=== PATIENT | male | born 1950 | race Caucasian/White ===

== ENCOUNTER 2018-03-14 10:08 | Observation (INO) ==
--- NOTE | 2018-03-14 10:13 | Emergency Department Note ---
Disposition Clinical Impression: ACS (acute coronary syndrome) Chest pain Qualifiers: Chest pain type: unspecified Qualified Code(s): R07.9 - Chest pain, unspecified Disposition: Admitted As Inpatient Condition: Fair Referrals: Pricila Funk CNP [Primary Care Provider] - Forms: ED Satisfaction Letter Time of Disposition: 11:12 Chest Pain HPI - General Chief Complaint: ED Chest Pain Stated Complaint: Chest Pain Time Seen by Provider: 03/14/18 10:11 Source: patient Mode of arrival: ambulatory Limitations: no limitations Vital Signs Reviewed: Yes Nursing Notes Reviewed: Yes - History of Present Illness HPI Narrative: 67-year-old male with a history of hypertension, CAD status post 5 stents in 2010 presents for evaluation of chest pain. Patient states symptom onset was around 2:00 this morning. Patient states that he awoke to a chest pressure in the anterior part of his chest that resolved after approximately 15 minutes. Denies any radiation symptoms. Describes as a tightness. Patient denied any pruritic component. No fevers or cough. Patient states that he got up and walked around. Patient noted this morning while in [employer] that he became very diaphoretic. No nausea or vomiting. No chest pain but does state that he has an uneasy feeling in his chest. Denies any other symptoms. Reports taking Plavix as well as aspirin. - Related Data Home Medications Medication Instructions Recorded Confirmed Aspirin [Adult Aspirin] 81 mg PO DAILY 03/14/18 03/14/18 Clopidogrel [Plavix] 75 mg PO DAILY 03/14/18 03/14/18 Folic Acid 1 mg PO DAILY 03/14/18 03/14/18 GlipiZIDE [Glipizide Xl] 5 mg PO DAILY 03/14/18 03/14/18 Lisinopril [Zestril] 10 mg PO BID 03/14/18 03/14/18 Meclizine HCl [Verticalm] 25 mg PO DAILY PRN 03/14/18 03/14/18 Metformin HCl 1,000 mg PO BID 03/14/18 03/14/18 Methotrexate [Otrexup] 10 mg PO QWEEK 03/14/18 03/14/18 Metoprolol Succinate [Toprol Xl] 50 mg PO DAILY 03/14/18 03/14/18 Omeprazole [PriLOSEC] 20 mg PO DAILY 03/14/18 03/14/18 Simvastatin [Zocor] 40 mg PO HS 03/14/18 03/14/18 Allergies Allergy/AdvReac Type Severity Reaction Status Date / Time metronidazole [From Flagyl] Allergy Nausea Verified 03/14/18 10:11 midazolam [From Versed] Allergy Anxiety Verified 03/14/18 10:11 All systems ED: reviewed and negative except as stated. Constitutional: Denies: fever Cardiovascular: Reports: chest pain Respiratory: Denies: cough, dyspnea Gastrointestinal: Denies: abdominal pain, nausea, vomiting Chest Pain PMH - Past Medical History Medical history: Reports: coronary artery disease, diabetes, hypertension, myocardial infarction Surgical history: Reports: angioplasty/stent, cholecystectomy Psychiatric history: Reports: no psych history - Social History Smoking Status: Current every day smoker Alcohol use: Reports: none Drug use: Reports: none Physical Exam - General Limitations: no limitations General appearance: alert, in no apparent distress - Head Head exam: atraumatic, normocephalic, normal inspection - Eye Eye exam: Present: normal appearance, PERRL, EOMI - ENT ENT exam: normal exam, mucous membranes moist - Neck Neck exam: Present: normal inspection, trachea midline - Chest Chest inspection: Present: normal inspection, symmetric chest wall rise - Respiratory Respiratory exam: Present: normal lung sounds bilaterally. Absent: respiratory distress - Cardiovascular Cardiovascular exam: Present: regular rate, normal rhythm. Absent: systolic murmur - Abdominal Exam Abdominal exam: Present: soft, Non-Tender - Extremities Exam Extremities exam: Present: normal inspection. Absent: pedal edema - Expanded Lower Extremity Exam Neurovascular/Tendon exam: Present: normal capillary refill - Back Exam Back exam: Present: normal inspection - Neurological Exam Neurological exam: Present: alert, oriented X3 - Skin Skin exam: Present: warm, dry, intact, normal color Course Course Narrative: Patient seen and examined. Patient presents with complaint of chest pain. Patient will get basic cardiopulmonary screening evaluation. Denies chest pain currently. Disposition likely admission. - Reevaluation(s) Reevaluation #1: Patient's resting comfortably. No chest pain. Time: 11:10 Reevaluation #2: Patient's resting comfortably. No acute distress. Updated on plan of care. Time: 11:17 Vital Signs Temperature 97.7 F 03/14/18 10:11 Pulse Rate 84 03/14/18 10:11 Respiratory Rate 20 03/14/18 10:11 Blood Pressure 174/92 03/14/18 10:11 O2 Sat by Pulse Oximetry 98 03/14/18 10:11 Temperature 97.7 F 03/14/18 10:18 Pulse Rate 79 03/14/18 11:12 Respiratory Rate 18 03/14/18 11:12 Blood Pressure 165/89 03/14/18 11:12 O2 Sat by Pulse Oximetry 99 03/14/18 11:12 Oxygen Delivery Oxygen Delivery Room Air Chest Pain - MDM Narrative Medical decision making narrative: Patient presents for concerns of chest pain. Patient's chest pain is most consistent with ACS. Patient's been chest pain-free during the ED. Patient does have a history of ACS with stents. Patient does have an elevated heart score and would benefit from further evaluation in the hospital. Patient was given aspirin. Patient's troponin is negative however with the patient symptom onset earlier today would likely need serial evaluations. Patient's pain is less consistent with a pulmonary embolism or aortic dissection. - Medical Records Medical records reviewed: Yes I reviewed the patient's medical records. 2017 Pharmacologic stress ECG is non diagnostic for ischemia due to baseline non-specific ST and T changes. Gated EF > 70%. Small sized, mild to moderate intensity, fixed basal to mid inferolateral defect. Perfusion is slightly worse on rest imaging and wall motion is normal. These findings are most suggestive of artifact. Perfusion imaging was negative for ischemia or infarct. - Lab Data Lab results reviewed: Yes I reviewed the patient's lab results. Result diagrams: 03/14/18 10:19 03/14/18 10:19 Lab Results 03/14/18 03/14/18 03/14/18 Range/Units 10:19 10:19 10:19 WBC 10.1 (4.3-11.1) K/mcL RBC 4.51 (4.19-5.50) M/mcL Hgb 14.3 (12.9-16.9) g/dL Hct 42.9 (37.5-50.1) % MCV 95.1 (83.0-100.0) fL MCH 31.7 (28.0-33.3) pg MCHC 33.3 (31.6-35.5) g/dL RDW 13.7 (11.5-14.5) % Plt Count 246 (140-400) K/mcL MPV 10.1 (9.4-12.4) fL Immature Gran % 0.3 (0-4) % Seg Neutrophils % 70.8 % Lymphocytes % 20.8 % Monocytes % 7.6 % Eosinophils % 0.3 % Basophils % 0.2 % Neutrophils # 7.1 (1.6-8.9) K/mcL Lymphocytes # 2.1 (0.6-4.6) K/mcL Monocytes # 0.8 (0.0-1.3) K/mcL Eosinophils # 0.0 (0.0-0.6) K/mcL Basophils # 0.0 (0.0-0.2) K/mcL Sodium 138 (136-145) mEq/L Potassium 3.8 (3.5-5.1) mEq/L Chloride 101 (98-107) mEq/L Carbon Dioxide 27 (23-29) mEq/L BUN 12 (8-23) mg/dL Creatinine 0.93 (0.70-1.30) mg/dL Est GFR ( Amer) > 60 (> 60) Est GFR (Non-Af Amer) > 60 (> 60) BUN/Creatinine Ratio 13 (6-26) Glucose 298 H (70-105) mg/dL Calculated Osmolality 297 (280-300) Calcium 9.3 (8.6-10.3) mg/dL Troponin I < 0.03 (< 0.04) ng/mL B-Natriuretic Peptide 12 (Less than 100) pg/mL - Radiology Data Radiology results reviewed: Yes I reviewed the patient's radiology results. Chest X-Ray 03/14/18 10:17 IMPRESSION: 1. No active cardiopulmonary disease. 2. 6 mm rounded opacity in the right upper lung zone for which nonemergent noncontrast CT of the chest is recommended. D/ / Myles Campos / Myles Campos Interpreting Provider: Myles Campos - EKG Data EKG attestation: Yes I reviewed and interpreted this EKG. EKG shows normal: sinus rhythm Rate: normal Rhythm: NSR [place]/QRS: left axis deviation Q waves: v1, v2, v3 When compared to previous EKG there are: no significant changes Interpretation: no acute changes, unchanged when compared to prior tracing (date ), nonspecific ST-T wave changes Heart Score - Score History: Moderately Suspicious EKG: Normal Age: Greater than 65 Risk Factors: Equal/Greater than 3 risk factor or history of atherosclerotic disease Troponin: Less than normal limit HEART Score Total: 5 S.B.A.R. - S.Miriam.Basilio Situation: Demographics Background: Presenting Complaint Assessment: Vital Signs, Course and respsone to treatment, Patient/Family Expectation Recommendation: Barrier(s) to disposition, Recommendation based on pending studies, treatments, or consults S.B.A.Sven Report Given to: Dr. Colten Jeffers Repor Time: 11:36
[2018-03-14] MEDS ORDERED: Nitroglycerin 0.4 MG TAB.SUBL SL ONE (10:26)
[2018-03-14] MEDS ORDERED: Aspirin 81 MG TAB.CHEW PO ONE (10:26)
--- NOTE | 2018-03-14 10:37 | Emergency Department Note ---
Disposition Clinical Impression: ACS (acute coronary syndrome) Disposition: Still a Patient Forms: ED Satisfaction Letter General Adult HPI - General Chief complaint: ED Chest Pain Stated complaint: Chest Pain Time Seen by Provider: 03/14/18 10:11 Source: patient Mode of arrival: ambulatory Limitations: no limitations - History of Present Illness Pain Scale: 1 - Related Data Previous Rx's Medication Instructions Recorded Ciprofloxacin [Cipro] 500 mg PO BID #10 tablet 03/18/15 metroNIDAZOLE [Flagyl] 500 mg PO TID #30 tablet 03/18/15 Allergies Allergy/AdvReac Type Severity Reaction Status Date / Time metronidazole [From Flagyl] Allergy Nausea Verified 03/14/18 10:11 midazolam [From Versed] Allergy Anxiety Verified 03/14/18 10:11 Constitutional: Denies: fever Cardiovascular: Reports: chest pain Respiratory: Denies: cough, dyspnea Gastrointestinal: Denies: abdominal pain, nausea, vomiting Past Medical History - Past Medical History Medical history: Reports: coronary artery disease, diabetes, hypertension, myocardial infarction Surgical history: Reports: angioplasty/stent, cholecystectomy Psychiatric history: Reports: no psych history - Social History Smoking Status: Current every day smoker Smokeless Tobacco Status: No Alcohol use: Reports: none Drug use: Reports: none Physical Exam - General Limitations: no limitations General appearance: alert, in no apparent distress Course - Reevaluation(s) Reevaluation #1: Attestation note I examined this patient and my medical decision-making was reviewed with the Resident Physician/[employer] RECONDITIONER/PA. 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 Patient became pain-free without nitroglycerin here ED EKG shows signs of old infarct but no acute ischemic changes. Patient's heart score is greater than 4 with admission anticipated patient and family member so informed. Patient getting aspirin screening labs chest x-ray. Disposition pending. Time: 10:35 Vital Signs Temperature 97.7 F 03/14/18 10:11 Pulse Rate 84 03/14/18 10:11 Respiratory Rate 20 03/14/18 10:11 Blood Pressure 174/92 03/14/18 10:11 O2 Sat by Pulse Oximetry 98 03/14/18 10:11 Temperature 97.7 F 03/14/18 10:18 Pulse Rate 84 03/14/18 10:18 Respiratory Rate 20 03/14/18 10:18 Blood Pressure 174/92 03/14/18 10:18 O2 Sat by Pulse Oximetry 98 03/14/18 10:18 Oxygen Delivery Oxygen Delivery Room Air
[2018-03-14 10:44] LABS: Basophils % 0.2 %; Eosinophils % 0.3 %; Hematocrit 42.9 % (37.5-50.1); Hemoglobin 14.3 g/dL (12.9-16.9); Immature Granulocytes % 0.3 % (0-4); Lymphocytes # 2.1 K/mcL (0.6-4.6); Lymphocytes % 20.8 %; Mean Corpuscular HGB Conc 33.3 g/dL (31.6-35.5); Mean Corpuscular Hemoglobin 31.7 pg (28.0-33.3); Mean Corpuscular Volume 95.1 fL (83.0-100.0); Mean Platelet Volume 10.1 fL (9.4-12.4); Monocytes # 0.8 K/mcL (0.0-1.3); Monocytes % 7.6 %; Neutrophils # 7.1 K/mcL (1.6-8.9); Platelet Count 246 K/mcL (140-400); Red Blood Count 4.51 M/mcL (4.19-5.50); Red Cell Distribution Width 13.7 % (11.5-14.5); Segmented Neutrophils % 70.8 %
[2018-03-14 10:55] LABS: BUN/Creatinine Ratio 13 (6-26); Blood Urea Nitrogen 12 mg/dL (8-23); Calcium 9.3 mg/dL (8.6-10.3); Carbon Dioxide 27 mEq/L (23-29); Chloride 101 mEq/L (98-107); Glucose 298 mg/dL (70-105); Osmolality,Calculated 297 (280-300); Potassium 3.8 mEq/L (3.5-5.1); Sodium 138 mEq/L (136-145); eGFR For Non-African Americans > 60 (> 60)
[2018-03-14 10:56] LABS: Troponin I < 0.03 ng/mL (< 0.04)
[2018-03-14] MEDS ORDERED: Ondansetron 4 MG/2 ML VIAL IVP PRN (13:03)
[2018-03-14] MEDS ORDERED: Naloxone 0.4 MG/ML INJ IVP PRN (13:06)
[2018-03-14] MEDS: Folic Acid 1 MG TABLET PO SCH (14:05)
[2018-03-14] MEDS: Metoprolol XL (24 HR) Succ 50 MG TAB.ER.24H PO SCH (14:05)
[2018-03-14] MEDS ORDERED: *HR* Dextrose 50 % in Water (Syg) 50 ML SYRINGE IVP PRN (17:14)
[2018-03-14] MEDS ORDERED: D5% in Water 1,000 ML IVC PRN (17:14)
[2018-03-14] MEDS ORDERED: Dextrose Gel 15 GM/37.5 ML TUBE PO PRN ×2 (17:14)
[2018-03-14] MEDS: Insulin LISPRO 300 UNITS/3 ML VIAL SQ SCH (17:37)
--- NOTE | 2018-03-14 18:49 | Internal Med History&Physical ---
Date of Encounter: 03/14/18 Time of Encounter: 14:45 Internal Medicine - H&P: HPI Chief complaint: chest pain Admitted From: Emergency Dept Plans for Post Hospital Care: Home History of present illness: Mr. Jordan is a 67 year old male with hx of CAD presented to ED with chest pain. He was subsequently admitted. He awoke at 2AM with chest pressure which resolved in 15 min. He went to [employer] and became diaphoretic with chest heaviness and was brought to ED. At this time he asymptomatic and everything resolved on its own. He has not been sick. No fever or chills. No cough or dyspnea. No other associated symptoms. Last stress in 2017 and negative. ? when last cath. Currently he is comfortable and pain free. Past Med Surg Social Fam HX - Past Medical History Medical history: coronary artery disease, diabetes, hypertension, myocardial infarction, RA Additional medical history: SBO Psychiatric history: no psych history - Past Surgical History Surgical History: angioplasty/stent, cholecystectomy Additional surgical history: Stents x 5 - Social History Smoking Status: Never smoker Smokeless Tobacco Status: No Alcohol use: none Drug use: none - Family History Father Living Status: Hx Family Cardiac Disorders: Yes Hx Family Respiratory Disorders: Yes (COPD) Hx Family GI Disorders: Yes (Colitis) Brother Living Status: Still Living Hx Family Cardiac Disorders: Yes (AR) Hx Family Musculoskeletal Disorders: Yes Internal Medicine - H&P: Meds Aspirin [Adult Aspirin] 81 mg PO DAILY 03/14/18 [History] Clopidogrel [Plavix] 75 mg PO DAILY 03/14/18 [History] Folic Acid 1 mg PO DAILY 03/14/18 [History] GlipiZIDE [Glipizide Xl] 5 mg PO DAILY 03/14/18 [History] Lisinopril [Zestril] 10 mg PO BID 03/14/18 [History] Meclizine HCl [Verticalm] 25 mg PO DAILY PRN 03/14/18 [History] Metformin HCl 1,000 mg PO BID 03/14/18 [History] Methotrexate [Otrexup] 10 mg PO QWEEK 03/14/18 [History] Metoprolol Succinate [Toprol Xl] 50 mg PO DAILY 03/14/18 [History] Omeprazole [PriLOSEC] 20 mg PO DAILY 03/14/18 [History] Simvastatin [Zocor] 40 mg PO HS 03/14/18 [History] 3 Allergy/AdvReac Type Severity Reaction Status Date / Time metronidazole [From Flagyl] Allergy Nausea Verified 03/14/18 10:11 midazolam [From Versed] Allergy Anxiety Verified 03/14/18 10:11 All Systems PM: A 10-system review of systems was performed and is negative for pertinent findings except as documented above in the HPI. - Constitutional Constitutional: excessive sweating - EENT Eyes: no dry eye, no loss of vision Ears: no decreased hearing Nose, mouth and throat: no dry mouth, no sinus pain - Cardiovascular Cardiovascular ROS IM: chest pain, diaphoresis, no dyspnea, no dyspnea on exertion, no irregular heart rhythm, no lightheadedness - Respiratory Respiratory: no dyspnea, no wheezing, no chest congestion - Gastrointestinal Gastrointestinal: no abdominal pain, no melena, no vomiting - Genitourinary Genitourinary ROS male: no dysuria, no urinary frequency, no urinary urgency - Musculoskeletal Musculoskeletal ROS IM: arthralgias - Integumentary Integumentary IM: no erythema, no rash - Neurological Neurological ROS: no abnormal gait, no confusion, no numbness - Endocrine Endocrine IM: no cold intolerance, no flushing - Hematologic/Lymphatic Hematologic/Lymphatic: no easy bleeding - Allergic/Immunologic Allergic/Immunologic: no itchy eyes, no wheezing - Constitutional Vitals: Temp Pulse Resp BP Pulse Ox 97.4 F L 66 16 149/64 98 03/14/18 16:19 03/14/18 16:19 03/14/18 16:19 03/14/18 16:19 03/14/18 16:19 General appearance: Present: A&O X 3, pleasant, answers questions appropriately - Head Head exam: Present: atraumatic, normocephalic - Eye Eye exam: Present: EOMI, conjuntiva pink - ENT ENT exam: Present: mucous membranes moist - Respiratory Respiratory exam: Present: CTAB. Absent: rales, rhonchi, wheezes - Cardiovascular Cardiovascular exam: Present: RRR. Absent: systolic murmur, tachycardia - GI/Abdominal GI/Abdominal exam: Present: normal bowel sounds, soft. Absent: mass, tenderness - Extremities Exam Extremities exam: Present: warm. Absent: pedal edema, tenderness - Neurological Exam Neurological exam: Present: alert, oriented X3, no focal deficits - Skin Skin exam: Present: dry, warm Internal Med - H&P Results - Labs CBC & Chem 7: 03/14/18 10:19 03/14/18 10:19 Labs: Cardiac Enzymes 03/14/18 Range/Units 13:38 Troponin I < 0.03 (< 0.04) ng/mL - Assessment and plan (1) Chest pain Current Visit: Yes Status: Suspected Assessment and plan: Pt with 2 episodes of chest discomfort (one with diaphoresis) which spontaneously resolved. Hx of [address] in observation. Continue meds. Serial troponins. Cardiology eval: stress versus LHC. NPO at midnight. Qualifiers: Chest pain type: chest pain due to myocardial ischemia Ischemic chest pain type: unstable angina pectoris Qualified Code(s): I20.0 - Unstable angina (2) Diabetes Current Visit: Yes Status: Chronic Assessment and plan: Accuchecks and sliding scale ordered. 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 Continue home meds. Qualifiers: Hypertension type: essential hypertension Qualified Code(s): I10 - Essential (primary) hypertension (4) CAD (coronary artery disease) Current Visit: Yes Status: Chronic Assessment and plan: See above. Qualifiers: Coronary Disease-Associated Artery/Lesion type: [place] artery [place] vs. transplanted heart: [place] heart Associated angina: with unstable angina Qualified Code(s): I25.110 - Atherosclerotic heart disease of [place] coronary artery with unstable angina pectoris - Time Spent With Patient Total time spent is greater than 50% in coordination of care (as documented) at patient's floor/unit and/or counseling patient:
[2018-03-14] MEDS ORDERED: Insulin LISPRO 300 UNITS/3 ML VIAL SQ SCH (21:00)
[2018-03-15 01:27] LABS: Basophils % 0.4 %; Eosinophils # 0.1 K/mcL (0.0-0.6); Eosinophils % 0.9 %; Hematocrit 37.6 % (37.5-50.1); Immature Granulocytes % 0.1 % (0-4); Lymphocytes # 1.7 K/mcL (0.6-4.6); Lymphocytes % 24.4 %; Mean Corpuscular HGB Conc 33.5 g/dL (31.6-35.5); Mean Corpuscular Hemoglobin 31.2 pg (28.0-33.3); Mean Corpuscular Volume 93.1 fL (83.0-100.0); Monocytes # 0.7 K/mcL (0.0-1.3); Monocytes % 10.1 %; Neutrophils # 4.5 K/mcL (1.6-8.9); Platelet Count 209 K/mcL (140-400); Red Blood Count 4.04 M/mcL (4.19-5.50); Red Cell Distribution Width 13.7 % (11.5-14.5); Segmented Neutrophils % 64.1 %
[2018-03-15 01:28] LABS: Hemoglobin 12.6 g/dL (12.9-16.9)
[2018-03-15 01:34] LABS: INR 1.1
[2018-03-15 01:48] LABS: Alanine Aminotransferase 29 Units/L (7-52); Alkaline Phosphatase 49 Units/L (34-104); Aspartate Amino Transferase 20 Units/L (13-39); BUN/Creatinine Ratio 15 (6-26); Bilirubin,Total 0.7 mg/dL (0.3-1.0); Blood Urea Nitrogen 14 mg/dL (8-23); Calcium 9.3 mg/dL (8.6-10.3); Carbon Dioxide 27 mEq/L (23-29); Chloride 107 mEq/L (98-107); Glucose 121 mg/dL (70-105); Magnesium 2.2 mg/dL (1.6-2.6); Osmolality,Calculated 290 (280-300); Potassium 4.2 mEq/L (3.5-5.1); Sodium 139 mEq/L (136-145); eGFR For Non-African Americans > 60 (> 60)
[2018-03-15] MEDS ORDERED: Aspirin 81 MG TAB.CHEW PO SCH (09:00)
--- NOTE | 2018-03-15 09:14 | Cardiology Consult Note ---
<JulioChan S - Last Filed: 03/15/18 10:33> Date of Encounter: 03/15/18 Time of Encounter: 08:40 Assessment and Plan (1) Chest pain Current Visit: Yes Status: Acute Pt presented to the ER due to chest pain that lasted for about 15-20min, started at 2:30am -located in shoulders, (+) palpitations and diaphoresis, pressure like pain -no active chest pain, SOB -troponins <0.03 x 3, BNP 12 -CXR negative for acute cardiopulmonary process -prior NE in 2010 s/p 5 stents, last cath is unknown -the patient states that this chest pain is unlike his previous heart attack -last ECHO was 12/2016: LVEF 55-60%, normal LV chamber, mild LVH, mild LV diastolic dysfxn, normal RV structure/fxn, mild aortic regurg, mild pulmonic regurg -stress test in 2017 negative for ischemia or infarct -EKG in the ER showed LVH, sinus bradycardia with a rate of 60, and old septal NE Plan: -ECHO pending -plan for stress test today -NPO for stress test -check lipid panel -SB score of 2 -continue home meds - aspirin 81mg PO daily, Plavix 75mg PO daily, Zestril 10mg PO daily, Toprol 50mg PO daily, Zocor 40mg PO daily -if stress test is negative pt can follow up with cardiology as an outpatient basis Qualifiers: Chest pain type: chest pain due to myocardial ischemia Ischemic chest pain type: unstable angina pectoris Qualified Code(s): I20.0 - Unstable angina (2) HTN (hypertension) Current Visit: No Status: Chronic BP on admission was 174/92 -this morning is 122/85, pt was hypertensive most of the day yesterday may be 2/ 2 to anxiety -poorly controlled Plan: -continue home meds -Zestril 10mg PO daily, Toprol 50mg PO daily Qualifiers: Hypertension type: essential hypertension Qualified Code(s): I10 - Essential (primary) hypertension (3) CAD (coronary artery disease) Current Visit: No Status: Chronic Pt has a hx of NE in 2010, s/p 5 stents of unknown last [facility] date -pt has multiple CAD risk factors including T2DM and HTN Plan: -check lipid profile -continue home meds aspirin 81mg PO daily, Plavix 75mg PO daily, Zestril 10mg PO daily, Toprol 50mg PO daily, Zocor 40mg PO daily -encourage low fat low cholesterol heart healthy diet Qualifiers: Coronary Disease-Associated Artery/Lesion type: [place] artery [place] vs. transplanted heart: [place] heart Associated angina: with unstable angina Qualified Code(s): I25.110 - Atherosclerotic heart disease of [place] coronary artery with unstable angina pectoris Discussion w patient/family: The assessment and plan as outlined above was discussed with the patient and/or family members who expressed understanding and agreement. All questions were answered. Thank you for involving us in the care of your patient. Please call with any questions. History of Present Illness Consult date: 03/14/18 Requesting physician: Hoang Abel Consult reason: Chest pain Chief complaint: "chest pain" History of present illness: Mr. Jordan is a 67 year old male who presented to the ER yesterday. He states that Thursday morning he was awoken at 2:30am by chest pain that lasted for about 15-20min. He states it was in his shoulders with no radiation and was a pressure like pain. He had associated palpiltations with the chest pain. -the pt has a PMH of T2DM, HTN, and a prior NE in 2010 s/p 5 stents, last cath is unknown -the patient states that this chest pain is unlike his previous heart attack The pt came to the ER after going to [employer] and becoming diaphoretic. He states that he is unable to exert himself as much as he used to and that his "cardio" isn't where it should be. He states that it takes him longer than it used to for him to mow the lawn but states that he has no CP/anginal s/s during exertion , SOB. He denies needing extra pillows to sleep and is able to lie flat. At this time the pt denies active chest pain. He denies SOB, N/V/D, diaphoresis , fevers/chills. He hasn't recently been sick. Troponins (-) x3 CXR - negative for acute cardiopulmonary process Fluids - none Electrolytes - all WNL Nutrition - currently NPO DVT prophylaxis - SQ heparin 5000U GI prophylaxis - not indicated Past Med Surg Social Fam HX - Past Medical History Medical history: coronary artery disease, diabetes, hypertension, myocardial infarction, RA Additional medical history: SBO Psychiatric history: no psych history - Past Surgical History Surgical History: angioplasty/stent, cholecystectomy Additional surgical history: Stents x 5 - Social History Smoking Status: Never smoker Smokeless Tobacco Status: No Alcohol use: none Drug use: none - Family History Father Living Status: Hx Family Cardiac Disorders: Yes Hx Family Respiratory Disorders: Yes (COPD) Hx Family GI Disorders: Yes (Colitis) Brother Living Status: Still Living Hx Family Cardiac Disorders: Yes (NE) Hx Family Musculoskeletal Disorders: Yes Medications and Allergies Aspirin [Adult Aspirin] 81 mg PO DAILY 03/14/18 [History] Clopidogrel [Plavix] 75 mg PO DAILY 03/14/18 [History] Folic Acid 1 mg PO DAILY 03/14/18 [History] GlipiZIDE [Glipizide Xl] 5 mg PO DAILY 03/14/18 [History] Lisinopril [Zestril] 10 mg PO BID 03/14/18 [History] Meclizine HCl [Verticalm] 25 mg PO DAILY PRN 03/14/18 [History] Metformin HCl 1,000 mg PO BID 03/14/18 [History] Methotrexate [Otrexup] 10 mg PO QWEEK 03/14/18 [History] Metoprolol Succinate [Toprol Xl] 50 mg PO DAILY 03/14/18 [History] Omeprazole [PriLOSEC] 20 mg PO DAILY 03/14/18 [History] Simvastatin [Zocor] 40 mg PO HS 03/14/18 [History] Aspirin 81 mg PO DAILY tab.chew 03/15/18 [Rx] 3 Allergy/AdvReac Type Severity Reaction Status Date / Time metronidazole [From Flagyl] Allergy Nausea Verified 03/14/18 10:11 midazolam [From Versed] Allergy Anxiety Verified 03/14/18 10:11 All Systems Review: The remainder of the systems were reviewed and are negative - Constitutional Constitutional: no chills, no fever(s), no stops breathing during sleep - Cardiovascular Cardiovascular: diaphoresis, leg edema, palpitations, no chest pain at rest, no chest pain with exertion, no dyspnea at rest, no dyspnea on exertion, no orthopnea, no paroxysmal nocturnal dyspnea - Gastrointestinal Gastrointestinal: no constipation, no diarrhea, no nausea - Neurological Neurological: no focal weakness, no numbness, no syncope, no tingling Physical Examination Vital Signs, Last 4 Hours Temp Pulse Resp BP Pulse Ox 03/15/18 07:32 97.7 F 64 15 122/85 97 General: Conversant HEENT: Atraumatic, Normocephaly Neck: No JVD Cardiac: Normal S1 and S2, No Murmur, Other (bradycardic) Neuro: Alert and responsive, No focal deficits noted Abdomen: Soft Skin: No rashes noted on visualized skin Musculoskeletal: No Chest Wall Tenderness Extremities: Other (1+ pitting edema) Results 03/15/18 00:57 03/15/18 00:57 Lab Results 03/14/18 03/14/18 03/15/18 13:38 18:53 00:57 WBC Hgb Hct Plt Count INR Sodium Potassium Chloride Carbon Dioxide BUN Creatinine Glucose Calcium Magnesium Total Bilirubin AST ALT Alkaline Phosphatase Troponin I < 0.03 < 0.03 < 0.03 03/15/18 03/15/18 03/15/18 00:57 00:57 00:57 WBC 7.0 Hgb 12.6 L D Hct 37.6 Plt Count 209 INR 1.1 Sodium 139 Potassium 4.2 Chloride 107 Carbon Dioxide 27 BUN 14 Creatinine 0.94 Glucose 121 H Calcium 9.3 Magnesium 2.2 Total Bilirubin 0.7 AST 20 ALT 29 Alkaline Phosphatase 49 Troponin I Consult Discharge Plan - Plan Referrals: Pricila Funk, GEN [Primary Care Provider] - <Emory Goins - Last Filed: 03/15/18 17:06> Date of Encounter: 03/15/18 Time of Encounter: 10:15 - Attending Attestation I examined this patient and my medical decision-making was reviewed with the Resident Physician. I agree with the documented findings, disposition and treatment plan as described except to the extent set forth below. CC: chest pain HPI: pt complains of sudden onset chest pain, awoken from sleep at 02:30, between his shoulder blades, pressure sensation, 8/10 at most severe, associated with heart racing but not skipping. Chest pain did not radiate, not associated with nausea, diaphoresis or shortness of breath. Pain lasted approximately forty five minutes, resolved spontaneously. He had second event, reports became very diaphoretic while at rest at [employer], became anxious, came to ER. Symptoms had resolved on presentation to ER, did not reoccur. He notes decreased exercise tolerance over last several months, no specific change, but notes he cannot mow or walk as fast as he was able too four months ago. He is not otherwise symptomatic, just takes longer to do physical exertion, is more tired afterward, ROS: reviewed PMH: reviewed PE: pt seen and examined, agree with findings as documented IMP/Plan: 1, Atypical chest pain, has ruled out for acute myocardial necrosis, however with hx, risk factors, will proceed with provocative stress imaging, further recs pending results of stress results. 2. CAD: severe single vessel CAD, post PCI with RAEANN unknown vessel, old records requested. 3. Hyptension: not well controlled at present, however suspect has significant anxiety component, will continue to monitor Assessment and Plan Discussion w patient/family: The assessment and plan as outlined above was discussed with the patient and/or family members who expressed understanding and agreement. All questions were answered. Thank you for involving us in the care of your patient. Please call with any questions. History of Present Illness History of present illness: Mr. Jordan is a 67 year old male All Systems Review: The remainder of the systems were reviewed and are negative Physical Examination Vital Signs, Last 4 Hours Temp Pulse Resp BP Pulse Ox 03/15/18 15:21 97.8 F 62 16 131/85 98 Results 03/15/18 00:57 03/15/18 00:57 Lab Results 03/14/18 03/15/18 03/15/18 18:53 00:57 00:57 WBC 7.0 Hgb 12.6 L D Hct 37.6 Plt Count 209 INR Sodium Potassium Chloride Carbon Dioxide BUN Creatinine Glucose Calcium Magnesium Total Bilirubin AST ALT Alkaline Phosphatase Troponin I < 0.03 < 0.03 03/15/18 03/15/18 00:57 00:57 WBC Hgb Hct Plt Count INR 1.1 Sodium 139 Potassium 4.2 Chloride 107 Carbon Dioxide 27 BUN 14 Creatinine 0.94 Glucose 121 H Calcium 9.3 Magnesium 2.2 Total Bilirubin 0.7 AST 20 ALT 29 Alkaline Phosphatase 49 Troponin I
[2018-03-15] MEDS ORDERED: D5% in 0.45% NACL 1,000 ML IVC SCH (09:30)
[2018-03-15 09:53] LABS: Estimated Average Glucose 154 mg/dl
[2018-03-15] MEDS: Metoprolol XL (24 HR) Succ 50 MG TAB.ER.24H PO SCH (10:11)
[2018-03-15] MEDS: Insulin LISPRO 300 UNITS/3 ML VIAL SQ SCH ×2 (10:11→12:37)
[2018-03-15] MEDS: Folic Acid 1 MG TABLET PO SCH (10:11)
[2018-03-15 10:25] LABS: Chol/HDL Ratio 4.3 (0-4.9)
[2018-03-15] MEDS ORDERED: Regadenoson 0.4 MG/5 ML SYRINGE IVP ONE (11:14)
--- NOTE | 2018-03-15 14:04 | Internal Med Progress Note ---
<Althea Hwang P - Last Filed: 03/15/18 14:50> Hospitalist Progress Note - Encounter Date of Encounter: 03/15/18 Time of Encounter: 11:00 - Subjective Interval History: Today is day 4th of admission.He is 67 year old male who presented to the ER for sharp severe central chest pain that lasted for about 15-20 min. He states it was in his central chest with no radiation and was a pressure like pain. He had associated palpitations and mild diaphoresis with the chest pain. He is known case of PMH of T2DM, HTN, and a prior VT in 2010 s/p 5 stents, last cardiac stress test was 2016 it was normal.At this time the pt denies active chest pain. He denies SOB, N/V/D, diaphoresis, fevers/chills, epigastric pain. His recent troponin is 0.03 . Vitals stable; 122/85, 7.7, pulse 64/ minutes. Cardiac stress testing done today :patient had no chest pain during test , normal hemodynamic response to pharmacological test , EF >70%, ECG : normal sinus rhythm with nonspecific ST changes. - Exam Vitals: Temp Pulse Resp BP Pulse Ox 97.7 F 64 15 122/85 97 03/15/18 07:32 03/15/18 07:32 03/15/18 07:32 03/15/18 07:32 03/15/18 10:00 Exam: Constitutional/ General normal weight, not in distress , oriented to time , place and person EENT Nose, mouth and throat: no dry mouth, no tonsilar enlargement, no exudates Cardiovascular Normal rate and rhythm, S1S2 no murmur, no rub , JVD, - Respiratory Respiratory: Normal chest expansion, normal air entry , no rales and crepitation. - Gastrointestinal Gastrointestinal: soft warm , no distension, no organomegaly, BS+ - Integumentary/ extremities no pedal edema, no calf swelling - Assessment and Plan (1) Chest pain Current Visit: Yes Status: Acute Assessment and Plan: Pt with 2 episodes of chest discomfort (one with diaphoresis) which spontaneously resolved. Hx of 5 stents. Latest Troponin 0.03 Cardiac stress test:Cardiac stress testing done today :patient had no chest pain during test , normal hemodynamic response to pharmacological test , EF >70% , ECG : normal sinus rhythm with nonspecific ST change He is on Aspirin and clopidogrel The pain is 0-1/10 now. (2) Diabetes Current Visit: Yes Status: Chronic Assessment and Plan: Accuchecks and sliding scale ordered. His latest blood sugar is 121 (3) HTN (hypertension) Current Visit: No Status: Chronic Assessment and Plan: He is on Lisinopril 10 mg OD His blood pressure is under control : 122/85 today (4) CAD (coronary artery disease) Current Visit: No Status: Chronic - Time Spent with Patient Total time spent is greater than 50% in coordination of care (as documented) at patient's floor/unit and/or counseling patient: Internal Medicine: Result - Labs CBC & Chem 7: 03/15/18 00:57 03/15/18 00:57 Labs: Short CBC 03/15/18 Range/Units 00:57 WBC 7.0 (4.3-11.1) K/mcL Hgb 12.6 L D (12.9-16.9) g/dL Hct 37.6 (37.5-50.1) % Plt Count 209 (140-400) K/mcL Neutrophils # 4.5 (1.6-8.9) K/mcL BMP 03/15/18 00:57 Sodium 139 Potassium 4.2 Chloride 107 Carbon Dioxide 27 BUN 14 Creatinine 0.94 Glucose 121 H Calcium 9.3 Cardiac Enzymes 03/14/18 03/14/18 03/15/18 Range/Units 13:38 18:53 00:57 Troponin I < 0.03 < 0.03 < 0.03 (< 0.04) ng/mL Liver Function 03/15/18 Range/Units 00:57 Total Bilirubin 0.7 (0.3-1.0) mg/dL AST 20 (13-39) Units/L ALT 29 (7-52) Units/L Alkaline Phosphatase 49 (34-104) Units/L Albumin 4.0 (3.5-5.7) g/dL - ABG Interpretation ABG results: PT/INR, D-dimer PT 12.0 Seconds (9.4-12.1) 03/15/18 00:57 Consult Discharge Plan - Plan Referrals: Pricila Funk, MAKEUP ARTISTRY INSTRUCTOR [Primary Care Provider] - <Hoang Abel - Last Filed: 03/15/18 17:51> Hospitalist Progress Note - Encounter Date of Encounter: 03/15/18 - Exam Vitals: Temp Pulse Resp BP Pulse Ox 97.8 F 62 16 131/85 98 03/15/18 15:21 03/15/18 15:21 03/15/18 15:21 03/15/18 15:21 03/15/18 15:21 - Assessment and Plan (1) Chest pain Current Visit: Yes Status: Resolved (2) Diabetes Current Visit: Yes Status: Chronic (3) HTN (hypertension) Current Visit: No Status: Chronic (4) CAD (coronary artery disease) Current Visit: No Status: Chronic - Time Spent with Patient Total time spent is greater than 50% in coordination of care (as documented) at patient's floor/unit and/or counseling patient: Internal Medicine: Result - Labs CBC & Chem 7: 03/15/18 00:57 03/15/18 00:57 Labs: Short CBC 03/15/18 Range/Units 00:57 WBC 7.0 (4.3-11.1) K/mcL Hgb 12.6 L D (12.9-16.9) g/dL Hct 37.6 (37.5-50.1) % Plt Count 209 (140-400) K/mcL Neutrophils # 4.5 (1.6-8.9) K/mcL BMP 03/15/18 00:57 Sodium 139 Potassium 4.2 Chloride 107 Carbon Dioxide 27 BUN 14 Creatinine 0.94 Glucose 121 H Calcium 9.3 Cardiac Enzymes 03/14/18 03/15/18 Range/Units 18:53 00:57 Troponin I < 0.03 < 0.03 (< 0.04) ng/mL Liver Function 03/15/18 Range/Units 00:57 Total Bilirubin 0.7 (0.3-1.0) mg/dL AST 20 (13-39) Units/L ALT 29 (7-52) Units/L Alkaline Phosphatase 49 (34-104) Units/L Albumin 4.0 (3.5-5.7) g/dL - ABG Interpretation ABG results: PT/INR, D-dimer PT 12.0 Seconds (9.4-12.1) 03/15/18 00:57 - Impressions Impressions Echocardiogram 03/15/18 08:25 Impressions: LVEF 60%. Mild left ventricular diastolic dysfunction. Normal right ventricular structure and function. Mild-moderate aortic regurgitation. Mild pulmonic regurgitation. No pulmonary hypertension. Left Ventricular Wall Motion: Rest Echo Findings All wall segments showed normal motion. Findings: Study Quality * Technically adequate exam. ECG Findings * Normal sinus rhythm. Left Ventricle * LVEF 60%. * Mild left ventricular diastolic dysfunction. * Normal LV chamber size and wall thickness. Right Ventricle * Normal right ventricular structure and function. Left Atrium * Normal left atrial size. Right Atrium * Normal right atrial size. Aortic Valve * Trileaflet aortic valve. * No aortic stenosis. * Mild-moderate aortic regurgitation. Mitral Valve * No mitral regurgitation. * Normal mitral valve structure. * No mitral stenosis. Tricuspid Valve * Tricuspid valve not well visualized. * Trace tricuspid regurgitation. Pulmonic Valve * Pulmonic valve is not well visualized. * No pulmonic stenosis. * Mild pulmonic regurgitation. Pulmonary Artery * Pulmonary artery not well visualized. Aorta * Normally sized aortic root. * Proximal ascending thoracic aorta not well visualized. Pericardium * There is no pericardial effusion present. Interatrial Septum * No evidence of PFO by color Doppler. IVC * The IVC is not well evaluated. - Attending Attestation Please see discharge summary of this date. <Althea Hwang P - Last Filed: 03/15/18 14:50> (1) Chest pain Qualifiers: Chest pain type: chest pain due to myocardial ischemia Ischemic chest pain type: unstable angina pectoris Qualified Code(s): I20.0 - Unstable angina (2) Diabetes Qualifiers: Diabetes mellitus type: type 2 Diabetes mellitus long-term insulin use: without long-term use Diabetes mellitus complication status: without complication Qualified Code(s): E11.9 - Type 2 diabetes mellitus without complications (3) HTN (hypertension) Qualifiers: Hypertension type: essential hypertension Qualified Code(s): I10 - Essential (primary) hypertension (4) CAD (coronary artery disease) Qualifiers: Coronary Disease-Associated Artery/Lesion type: [place] artery [place] vs. 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 transplanted heart: [place] heart Associated angina: with unstable angina Qualified Code(s): I25.110 - Atherosclerotic heart disease of [place] coronary artery with unstable angina pectoris
[2018-03-15 15:26] VITALS: BP 131/85
--- NOTE | 2018-03-15 15:47 | Event Note ---
<Chan Julio - Last Filed: 03/15/18 15:45> Date of Encounter: 03/15/18 Time of Encounter: 15:45 ECHO LVEF of 60% -mild LV diastolic dysfxn Stress test showed a gated EF>70% -negative for ischemia/infarct At this time, cardiology will sign off. Pt is stable from a cardiology standpoint <Emory Goins - Last Filed: 03/15/18 17:07> Date of Encounter: 03/15/18 - Attending Attestation Agree with results as above.
--- NOTE | 2018-03-15 16:17 | Discharge Summary ---
<Althea Hwang P - Last Filed: 03/15/18 16:49> - NOTES TO OUTPATIENT PROVIDER Notes to Outpatient Provider: Follow up with PCP and remotely piloted vehicle controller in out-patient Orders not resulted at time of discharge: Pending orders 03/15/18 10:12 NM kallie perf SPECT multi [NM] Routine Date of Encounter: 03/15/18 Time of Encounter: 03:00 - Discharge Diagnosis (1) Chest pain Priority: Primary Status: Resolved Comments: The patient has no chest pain now, he rates pain 0-1/10 .Latest Troponin 0.03Cardiac stress test:Cardiac stress testing done today :patient had no chest pain during test , normal hemodynamic response to pharmacological test , EF >70% , ECG : normal sinus rhythm with nonspecific ST change .He is on Aspirin and clopidogrel Qualifiers: Chest pain type: chest pain due to myocardial ischemia Ischemic chest pain type: unstable angina pectoris Qualified Code(s): I20.0 - Unstable angina (2) Diabetes Priority: Secondary Status: Chronic Comments: He is a known case of DM- 2, under [facility] His latest blood sugar is 121. We are putting him on oral antiglycemic medication. 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 Qualifiers: Hypertension type: essential hypertension Qualified Code(s): I10 - Essential (primary) hypertension (4) CAD (coronary artery disease) Priority: Secondary Status: Chronic Comments: His is Known case of Cornonary artery disease with stent placement He is on aspirin and clopidogrel. Recent chest pain has been resolved ,Cardiac stress testing done 03/15/2018: had no chest pain during test , normal hemodynamic response to pharmacological test , EF >70%, ECG : normal sinus rhythm with nonspecific ST change Qualifiers: Coronary Disease-Associated Artery/Lesion type: [place] artery [place] vs. transplanted heart: [place] heart Associated angina: with unstable angina Qualified Code(s): I25.110 - Atherosclerotic heart disease of [place] coronary artery with unstable angina pectoris Hospital course: Mr. Jordan is a 67 year old male who presented to the ER for sharp severe central chest pain that lasted for about 15-20 min. He states it was in his central chest with no radiation and was a pressure like pain. The pain was 8-9/ 10 at that time . He had associated palpitations and mild diaphoresis with the chest pain.He is known case of T2DM, HTN, and a prior MO in 2010 s/p 5 stents, previous cardiac stress test was done in 2017 and report was normal.Today, he denies any active chest pain, he rates his pain 0-1/10 . He denies SOB, nausea , vomiting, SOB, diaphoresis, fevers/chills, epigastric pain.His recent troponin is 0.03 . His vitals are stable; BP 122/85, tem 97.7, pulse 64/ minutes. Cardiac stress testing done today (03/15/2018) had no chest pain during test , normal hemodynamic response to pharmacological test , EF >70%, ECG : normal sinus rhythm with nonspecific ST changes.The patient is stable today, his vitals are normal. He denies any type of chest pain and other fresh complaints . We are planning to discharge him and he will follow up with remotely piloted vehicle controller and his PCP in out patient unit. - Time Spent with Patient Total time spent providing and/or coordinating discharge services: - Discharge Medications Home Medications: Aspirin [Adult Aspirin] 81 mg PO DAILY 03/14/18 [History] Clopidogrel [Plavix] 75 mg PO DAILY 03/14/18 [History] Folic Acid 1 mg PO DAILY 03/14/18 [History] GlipiZIDE [Glipizide Xl] 5 mg PO DAILY 03/14/18 [History] Lisinopril [Zestril] 10 mg PO BID 03/14/18 [History] Meclizine HCl [Verticalm] 25 mg PO DAILY PRN 03/14/18 [History] Metformin HCl 1,000 mg PO BID 03/14/18 [History] Methotrexate [Otrexup] 10 mg PO QWEEK 03/14/18 [History] Metoprolol Succinate [Toprol Xl] 50 mg PO DAILY 03/14/18 [History] Omeprazole [PriLOSEC] 20 mg PO DAILY 03/14/18 [History] Simvastatin [Zocor] 40 mg PO HS 03/14/18 [History] Aspirin 81 mg PO DAILY tab.chew 03/15/18 [Rx] Allergies/Adverse Reactions: 3 Allergy/AdvReac Type Severity Reaction Status Date / Time metronidazole [From Flagyl] Allergy Nausea Verified 03/14/18 10:11 midazolam [From Versed] Allergy Anxiety Verified 03/14/18 10:11 Date of admission: 03/14/18 11:50 Primary care physician: Pricila Funk CNP Consults: 03/14/18 17:24 Consult to Cardiology [CONS] Routine Comment: Consulting Provider: Cardiology Lisa Reason for Consult: Chest pain. ? stress versus [facility] Time Notified: 15:00 Call Completed: Yes - Constitutional Vitals: Temp Pulse Resp BP Pulse Ox 97.8 F 62 16 131/85 98 03/15/18 15:21 03/15/18 15:21 03/15/18 15:21 03/15/18 15:21 03/15/18 15:21 General appearance: Present: cooperative, A&O X 3, pleasant, answers questions appropriately Exam: Constitutional/ General normal weight, not in distress , oriented to time , place and person EENT Nose, mouth and throat: no dry mouth, no tonsilar enlargement, no exudates in throat. Cardiovascular Normal rate and rhythm, S1S2 no murmur, no rub , no JVD, - Respiratory Respiratory: Normal chest expansion, normal air entry , no rales and crepitation. - Gastrointestinal Gastrointestinal: soft ,warm , no distension, no organomegaly, BS+ - Integumentary/ extremities no pedal edema, no calf swelling - Patient Status Disposition: Home, Self-Care Functional capacity at discharge: independent ambulation Overall status at discharge: patient is back to baseline - Discharge Instructions Instructions: Chest Pain (DC), Chest Pain (GEN) Follow Up With: Pricila Funk CNP [Primary Care Provider] - (Web request sent. Office will call with follow up appointment.) - Diet and Activity Activity: resume usual activities as tolerated Diet: diabetic diet, low fat, low cholesterol <Hoang Abel - Last Filed: 03/15/18 18:53> Orders not resulted at time of discharge: Pending orders 03/15/18 10:12 NM kallie perf SPECT multi [NM] Routine Date of Encounter: 03/15/18 - Discharge Diagnosis (1) Chest pain Status: Resolved Qualifiers: Chest pain type: chest pain due to myocardial ischemia Ischemic chest pain type: unstable angina pectoris Qualified Code(s): I20.0 - Unstable angina (2) Diabetes Status: Chronic Qualifiers: Diabetes mellitus type: type 2 Diabetes 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 transplanted heart: [place] heart Associated angina: with unstable angina Qualified Code(s): I25.110 - Atherosclerotic heart disease of [place] coronary artery with unstable angina pectoris Hospital course: Mr. Jordan is a 67 year old male - Time Spent with Patient Total time spent providing and/or coordinating discharge services: 28min Date of admission: 03/14/18 11:50 Primary care physician: Pricila Funk CNP Consults: 03/14/18 17:24 Consult to Cardiology [CONS] Routine Comment: Consulting Provider: Cardiology Lisa Reason for Consult: Chest pain. ? stress versus [facility] Time Notified: 15:00 Call Completed: Yes - Constitutional Vitals: Temp Pulse Resp BP Pulse Ox 97.8 F 62 16 131/85 98 03/15/18 15:21 03/15/18 15:21 03/15/18 15:21 03/15/18 15:21 03/15/18 15:21 - Attending Attestation I examined this patient and my medical decision-making was reviewed with the Resident Physician on 03/15/18. I agree with the documented findings, disposition and treatment plan as described except to the extent set forth below. Mr Jordan has been in observation for chest discomfort. This resolved spontaneously. He had stress test and echo negative today. He is now afebrile and ready for discharge home. Exam alert Pleasant Mucus membranes dry Heart reg Lungs clear Abd soft No edema Plan D/C home today.
[2018-03-16] MEDS ORDERED: Aspirin Enteric Coated 81 MG Tablet PO SCH (09:00)
== END 2018-03-15 18:57 | disposition home or self-care (01) ==
LOC: 3BNU 10:08 → EMEROOARM 10:08 → 3BNU 12:40
PROVIDERS: ADMIT Internal Medicine; ATTEND Internal Medicine

== ENCOUNTER 2019-01-18 09:44 | Inpatient (IN) ==
[2019-01-18 10:29] LABS: Basophils % 0.3 %; Eosinophils % 0.6 %; Hematocrit 39.6 % (37.5-50.1); Immature Granulocytes % 0.3 % (0-4); Lymphocytes % 30.2 %; Mean Corpuscular HGB Conc 32.8 g/dL (31.6-35.5); Mean Corpuscular Hemoglobin 30.7 pg (28.0-33.3); Mean Corpuscular Volume 93.6 fL (83.0-100.0); Mean Platelet Volume 10.3 fL (9.4-12.4); Monocytes # 0.6 K/mcL (0.0-1.3); Monocytes % 9.3 %; Platelet Count 231 K/mcL (140-400); Red Blood Count 4.23 M/mcL (4.19-5.50); Segmented Neutrophils % 59.3 %; White Blood Count 6.8 K/mcL (4.3-11.1)
[2019-01-18 10:36] LABS: Prothrombin Time 11.3 Seconds (9.4-12.1)
[2019-01-18 10:39] LABS: Activated Partial Thrombo Time 31.8 Seconds (26.0-36.0)
[2019-01-18 11:02] LABS: BUN/Creatinine Ratio 14 (6-26); Blood Urea Nitrogen 13 mg/dL (8-23); Calcium 9.3 mg/dL (8.6-10.3); Carbon Dioxide 26 mEq/L (23-29); Chloride 101 mEq/L (98-107); Glucose 315 mg/dL (70-105); Osmolality,Calculated 296 (280-300); Potassium 4.2 mEq/L (3.5-5.1); Sodium 137 mEq/L (136-145); Troponin I 0.05 ng/mL (< 0.04); eGFR For African Americans > 60 (> 60); eGFR For Non-African Americans > 60 (> 60)
--- NOTE | 2019-01-18 11:15 | Emergency Department Note ---
Disposition Clinical Impression: Chest pain, rule out acute myocardial infarction, Elevated troponin Disposition: Admitted As Inpatient Condition: Fair Time of Disposition: 11:00 Chest Pain HPI - General Chief Complaint: ED Chest Pain Stated Complaint: Chest Burning Time Seen by Provider: 01/18/19 09:47 Source: patient Limitations: no limitations Vital Signs Reviewed: Yes Nursing Notes Reviewed: Yes - History of Present Illness HPI Narrative: 68-year-old male the emergency department with concerns of acute onset chest pain. Patient states the pain is a burning his left upper chest. This feels different than his previous reflux. Patient states it feels similar to his previous heart attack. Patient has a history of CA with [address] Patient states the pain does not radiate, is not associated with diaphoresis or nausea, vomiting, syncope or palpitations. Denies abdominal pain, diarrhea, rash. The pain worsens with exertion and improves with rest. Severity scale (1-10): 3 - Related Data Home Medications Medication Instructions Recorded Confirmed Clopidogrel [Plavix] 75 mg PO DAILY 03/14/18 01/18/19 Folic Acid 1 mg PO DAILY 03/14/18 01/18/19 Lisinopril [Zestril] 20 mg PO BID 03/14/18 01/18/19 Metformin HCl 1,000 mg PO BID 03/14/18 01/18/19 Metoprolol Succinate [Toprol Xl] 50 mg PO DAILY 03/14/18 01/18/19 Omeprazole [PriLOSEC] 20 mg PO DAILY 03/14/18 01/18/19 Simvastatin [Zocor] 40 mg PO HS 03/14/18 01/18/19 Adalimumab [Humira] 40 mg SQ Q2W 01/18/19 01/18/19 Amlodipine Besylate 2.5 mg PO DAILY 01/18/19 01/18/19 Ascorbate Calcium [Vitamin C] 500 mg PO DAILY 01/18/19 01/18/19 Fluticasone Propionate Nasal 50 mcg NS DAILY 01/18/19 01/18/19 [Flonase] Glimepiride [Amaryl] 2 mg PO 0800 01/18/19 01/18/19 Lactobacillus Acidophilus/Fos 1 each PO DAILY 01/18/19 01/18/19 [Acidophilus Probiotic Tablet] Previous Rx's Medication Instructions Recorded Aspirin 81 mg PO DAILY tab.chew 03/15/18 Allergies Allergy/AdvReac Type Severity Reaction Status Date / Time metronidazole [From Flagyl] Allergy Nausea Verified 03/14/18 10:11 midazolam [From Versed] Allergy Anxiety Verified 03/14/18 10:11 All systems ED: reviewed and negative except as stated. Review of Systems: As Per HPI Chest Pain PMH - Past Medical History Medical history: Reports: coronary artery disease, diabetes, hypertension, myocardial infarction, RA Surgical history: Reports: angioplasty/stent, cholecystectomy Psychiatric history: Reports: no psych history - Social History Smoking Status: Never smoker Alcohol use: Reports: none Drug use: Reports: none Physical Exam General: Alert and in no acute distress Skin: Warm, dry, intact Head: Normocephalic and atraumatic Neck: Supple, trachea midline and no tenderness Cardiovascular: RRR, no murmur, normal perfusion Respiratory: CTAB, no wheezing, cough, or respiratory distress Musculoskeletal: Normal strength, no tenderness, swelling or deformity GI: Soft, nontender, nondistended. Bowel sounds present Neuro: A&O to person, place, time and situation. No focal deficits noted on exam Psychiatric: cooperative and appropriate mood and affect. - General Limitations: no limitations General appearance: alert, in no apparent distress Course Vital Signs Temperature 97.9 F 01/18/19 09:49 Pulse Rate 71 01/18/19 09:49 Respiratory Rate 18 01/18/19 09:49 Blood Pressure 163/90 01/18/19 09:49 O2 Sat by Pulse Oximetry 99 01/18/19 09:49 Temperature 97.9 F 01/18/19 14:11 Pulse Rate 61 01/18/19 14:11 Respiratory Rate 16 01/18/19 14:11 Blood Pressure 153/83 01/18/19 14:11 O2 Sat by Pulse Oximetry 97 01/18/19 14:11 Oxygen Delivery Oxygen Delivery Room Air Chest Pain - MDM Narrative Medical decision making narrative: Initial troponin mildly elevated. He is given aspirin in the emergency department. EKG did not show evidence of STEMI. Patient will be admitted to the hospital for further care and evaluation. - Medical Records Medical records reviewed: Yes I reviewed the patient's medical records. - Lab Data Lab results reviewed: Yes I reviewed the patient's lab results. Result diagrams: 01/18/19 10:13 01/18/19 10:13 Lab Results 01/18/19 01/18/19 01/18/19 Range/Units 10:13 10:13 10:13 WBC 6.8 (4.3-11.1) K/mcL RBC 4.23 (4.19-5.50) M/mcL Hgb 13.0 (12.9-16.9) g/dL Hct 39.6 (37.5-50.1) % MCV 93.6 (83.0-100.0) fL MCH 30.7 (28.0-33.3) pg MCHC 32.8 (31.6-35.5) g/dL RDW 13.0 (11.5-14.5) % Plt Count 231 (140-400) K/mcL MPV 10.3 (9.4-12.4) fL Immature Gran % 0.3 (0-4) % Seg Neutrophils % 59.3 % Lymphocytes % 30.2 % Monocytes % 9.3 % Eosinophils % 0.6 % Basophils % 0.3 % Neutrophils # 4.0 (1.6-8.9) K/mcL Lymphocytes # 2.0 (0.6-4.6) K/mcL Monocytes # 0.6 (0.0-1.3) K/mcL Eosinophils # 0.0 (0.0-0.6) K/mcL Basophils # 0.0 (0.0-0.2) K/mcL PT 11.3 (9.4-12.1) Seconds INR 1.0 APTT 31.8 (26.0-36.0) Seconds Sodium 137 (136-145) mEq/L Potassium 4.2 (3.5-5.1) mEq/L Chloride 101 (98-107) mEq/L Carbon Dioxide 26 (23-29) mEq/L BUN 13 (8-23) mg/dL Creatinine 0.90 (0.70-1.30) mg/dL Est GFR ( Amer) > 60 (> 60) Est GFR (Non-Af Amer) > 60 (> 60) BUN/Creatinine Ratio 14 (6-26) Glucose 315 H (70-105) mg/dL Est Mean Plasma Glucose mg/dl Hemoglobin A1c ( - 5.6) % Calculated Osmolality 296 (280-300) Calcium 9.3 (8.6-10.3) mg/dL Troponin I 0.05 H* (< 0.04) ng/mL 01/18/19 Range/Units 10:13 WBC (4.3-11.1) K/mcL RBC (4.19-5.50) M/mcL Hgb (12.9-16.9) g/dL Hct (37.5-50.1) % MCV (83.0-100.0) fL MCH (28.0-33.3) pg MCHC (31.6-35.5) g/dL RDW (11.5-14.5) % Plt Count (140-400) K/mcL MPV (9.4-12.4) fL Immature Gran % (0-4) % Seg Neutrophils % % Lymphocytes % % Monocytes % % Eosinophils % % Basophils % % Neutrophils # (1.6-8.9) K/mcL Lymphocytes # (0.6-4.6) K/mcL Monocytes # (0.0-1.3) K/mcL Eosinophils # (0.0-0.6) K/mcL Basophils # (0.0-0.2) K/mcL PT (9.4-12.1) Seconds INR APTT (26.0-36.0) Seconds Sodium (136-145) mEq/L Potassium (3.5-5.1) mEq/L Chloride (98-107) mEq/L Carbon Dioxide (23-29) mEq/L BUN (8-23) mg/dL Creatinine (0.70-1.30) mg/dL Est GFR ( Amer) (> 60) Est GFR (Non-Af Amer) (> 60) BUN/Creatinine Ratio (6-26) Glucose (70-105) mg/dL Est Mean Plasma Glucose 169 mg/dl Hemoglobin A1c 7.5 H ( - 5.6) % Calculated Osmolality (280-300) Calcium (8.6-10.3) mg/dL Troponin I (< 0.04) ng/mL - Radiology Data Radiology results reviewed: Yes I reviewed the patient's radiology results. - EKG Data EKG attestation: Yes I reviewed and interpreted this EKG. EKG results narrative: Normal sinus rhythm with rate of 70 without evidence of STEMI or other dys rhythmia. QTC of 455, QRS of 127 Heart Score - Score History: Moderately Suspicious EKG: Normal Age: Greater than 65 Risk Factors: Equal/Greater than 3 risk factor or history of atherosclerotic disease Troponin: 1-3x normal limit HEART Score Total: 6
[2019-01-18] MEDS ORDERED: Aspirin 81 MG TAB.CHEW PO ONE (11:18)
[2019-01-18] MEDS ORDERED: Acetaminophen 325 MG TABLET PO PRN (13:14)
[2019-01-18] MEDS ORDERED: Naloxone 0.4 MG/ML INJ IVP PRN (13:14)
[2019-01-18] MEDS ORDERED: *HR* HYDROcodone/Acet 5/325 mg TABLET PO PRN (13:14)
[2019-01-18] MEDS ORDERED: Ondansetron 4 MG/2 ML VIAL IVP PRN (13:14)
[2019-01-18] MEDS ORDERED: D5% in Water 1,000 ML IVC PRN (13:17)
[2019-01-18] MEDS ORDERED: *HR* Dextrose 50 % in Water (Syg) 50 ML SYRINGE IVP PRN (13:17)
[2019-01-18] MEDS ORDERED: Dextrose Gel 15 GM/37.5 ML TUBE PO PRN ×2 (13:17)
[2019-01-18 14:34] LABS: Estimated Average Glucose 169 mg/dl
[2019-01-18] MEDS: Insulin LISPRO 300 UNITS/3 ML VIAL SQ SCH ×2 (15:34→21:19)
--- NOTE | 2019-01-18 15:38 | Internal Med History&Physical ---
Date of Encounter: 01/18/19 Time of Encounter: 13:00 Internal Medicine - H&P: HPI Chief complaint: chest pain Admitted From: Emergency Dept Plans for Post Hospital Care: Home History of present illness: Mr. Jordan is a 68 year old male with known past medical history of CAD status post PCI x 5, hypertension, hyperlipidemia , rheumatoid arthritis and DM2 pt presented to ER with chest pain from last 3-4 days. His CP is more like intermittent, located sub sternally, non-radiating, 6/10 in severity and more like burning / pressure type pain. In the ER his EKG showed NSR, No ST, T changes. His initial trop was elevated @ 0.05. When I examined the pt in the ER, he denied any active CP now. Pt stated initially he thought it was heart burning and took some PPI, however pain did not go away. Past Med Surg Social Fam HX - Past Medical History Medical history: coronary artery disease, diabetes, hypertension, myocardial infarction, RA Additional medical history: SBO Psychiatric history: no psych history - Past Surgical History Surgical History: cholecystectomy Additional surgical history: Stents x 5 - Social History Smoking Status: Never smoker Smokeless Tobacco Status: No Alcohol use: none Drug use: none - Family History Father Living Status: Hx Family Cardiac Disorders: Yes Hx Family Respiratory Disorders: Yes (COPD) Hx Family GI Disorders: Yes (Colitis) Brother Living Status: Still Living Hx Family Cardiac Disorders: Yes (OK) Internal Medicine - H&P: Meds Clopidogrel [Plavix] 75 mg PO DAILY 03/14/18 [History] Folic Acid 1 mg PO DAILY 03/14/18 [History] Lisinopril [Zestril] 20 mg PO BID 03/14/18 [History] Metformin HCl 1,000 mg PO BID 03/14/18 [History] Metoprolol Succinate [Toprol Xl] 50 mg PO DAILY 03/14/18 [History] Omeprazole [PriLOSEC] 20 mg PO DAILY 03/14/18 [History] Simvastatin [Zocor] 40 mg PO HS 03/14/18 [History] Aspirin 81 mg PO DAILY tab.chew 03/15/18 [Rx] Adalimumab [Humira] 40 mg SQ Q2W 01/18/19 [History] Amlodipine Besylate 2.5 mg PO DAILY 01/18/19 [History] Ascorbate Calcium [Vitamin C] 500 mg PO DAILY 01/18/19 [History] Fluticasone Propionate Nasal [Flonase] 50 mcg NS DAILY 01/18/19 [History] Glimepiride [Amaryl] 2 mg PO 0800 01/18/19 [History] Lactobacillus Acidophilus/Fos [Acidophilus Probiotic Tablet] 1 each PO DAILY 01/18/19 [History] Allergy/AdvReac Type Severity Reaction Status Date / Time metronidazole [From Flagyl] Allergy Nausea Verified 03/14/18 10:11 midazolam [From Versed] Allergy Anxiety Verified 03/14/18 10:11 All Systems PM: A 10-system review of systems was performed and is negative for pertinent findings except as documented above in the HPI. Review of systems: All the systems are reviewed everything is benign except the systems and symptoms I mentioned in the history of present illness - Constitutional Vitals: Temp Pulse Resp BP Pulse Ox 97.9 F 61 16 153/83 97 01/18/19 14:11 01/18/19 14:11 01/18/19 14:11 01/18/19 14:11 01/18/19 14:11 General appearance: Present: cooperative, A&O X 3, no acute distress, answers questions appropriately Exam: a - Head Head exam: Present: atraumatic, normal inspection - Neck Neck exam general surgery: Present: supple - Respiratory Respiratory exam: Present: decreased breath sounds. Absent: rales, respiratory distress, rhonchi, wheezes - Cardiovascular Cardiovascular exam: Present: RRR, +S1, +S2. Absent: tachycardia - GI/Abdominal GI/Abdominal exam: Present: normal bowel sounds, soft. Absent: rebound, rigid, tenderness - Extremities Exam Extremities exam: Present: normal inspection. Absent: calf tenderness, pedal edema, tenderness - Back Exam Back exam: Absent: CVA tenderness (L), CVA tenderness (R) - Neurological Exam Neurological exam: Present: alert, oriented X3 - Psychiatric Psychiatric exam: Present: normal affect, normal mood - Skin Skin exam: Absent: rash Internal Med - H&P Results - Labs CBC & Chem 7: 01/18/19 10:13 01/18/19 10:13 Labs: Short CBC 01/18/19 Range/Units 10:13 WBC 6.8 (4.3-11.1) K/mcL Hgb 13.0 (12.9-16.9) g/dL Hct 39.6 (37.5-50.1) % Plt Count 231 (140-400) K/mcL Neutrophils # 4.0 (1.6-8.9) K/mcL BMP 01/18/19 10:13 Sodium 137 Potassium 4.2 Chloride 101 Carbon Dioxide 26 BUN 13 Creatinine 0.90 Glucose 315 H Calcium 9.3 Cardiac Enzymes 01/18/19 Range/Units 10:13 Troponin I 0.05 H* (< 0.04) ng/mL - Impressions ITS Impressions Chest X-Ray 01/18/19 10:13 IMPRESSION: No acute cardiopulmonary process. D/ / Cleve Valenzuela MD / Cleve Valenzuela MD Interpreting Provider: Cleve Valenzuela MD - Assessment and Plan (1) Chest pain Current Visit: No Status: Acute Assessment and plan: Will admit the pt into Tele for observation Will place pt on hall monitor check serial troponin His initial troponin sightly elevated @ 0.05 EKG reviewed - No acute ischemic changes noticed Cont ASA, Statin and BB Nitro PRN Will check FLP in AM Will get stress test in AM since pt is high risk for ACS if his troponin stays stable Qualifiers: Chest pain type: chest pain due to myocardial ischemia Ischemic chest pain type: unstable angina pectoris Qualified Code(s): I20.0 - Unstable angina (2) Elevated troponin Current Visit: Yes Status: Acute Assessment and plan: sightly elevated @ 0.05 trend on troponin (3) CAD (coronary artery disease) Current Visit: No Status: Chronic Assessment and plan: resumed all home meds Qualifiers: Coronary Disease-Associated Artery/Lesion type: [place] artery [place] vs. 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
[2019-01-18] MEDS ORDERED: *HR* Heparin 5,000 UNIT/ML VIAL IVP PRN ×2 (16:11)
[2019-01-18] MEDS ORDERED: *HR* Heparin 5,000 UNIT/ML VIAL IVP ONE (16:11)
[2019-01-18] MEDS ORDERED: Heparin 25,000 UNIT/250 ML D5W 25,000 UNIT/250 ML IV.SOLN IVC SCH (16:15)
[2019-01-18 16:55] LABS: Hematocrit 38.7 % (37.5-50.1); Mean Corpuscular HGB Conc 33.6 g/dL (31.6-35.5); Mean Corpuscular Hemoglobin 30.7 pg (28.0-33.3); Mean Corpuscular Volume 91.3 fL (83.0-100.0); Mean Platelet Volume 10.4 fL (9.4-12.4); Platelet Count 237 K/mcL (140-400); Red Blood Count 4.24 M/mcL (4.19-5.50); Red Cell Distribution Width 12.8 % (11.5-14.5); White Blood Count 7.7 K/mcL (4.3-11.1)
[2019-01-18 17:04] LABS: Heparin anti-factor XA UFH 0.03 IU/mL (0.30-0.70)
[2019-01-18 17:05] LABS: INR 0.9; Prothrombin Time 10.7 Seconds (9.4-12.1)
--- NOTE | 2019-01-18 17:08 | Electrocardiograph Report ---
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
[2019-01-19 06:38] LABS: Chol/HDL Ratio 4.1 (0-4.9)
[2019-01-19] MEDS: Insulin LISPRO 300 UNITS/3 ML VIAL SQ SCH ×4 (08:08→20:58)
--- NOTE | 2019-01-19 08:13 | Cardiology Consult Note ---
<Dai Hernandez N - Last Filed: 01/19/19 09:34> Date of Encounter: 01/19/19 Time of Encounter: 08:13 Assessment and Plan (1) NSTEMI (non-ST elevated myocardial infarction) Current Visit: Yes Status: Acute Patient presented with intermittent chest pain and elevated troponins of 0.05, 0.15, 0.23, 0.15. ECG is significant for T-wave inversions in lead I and aVL that are new compared to prior study dated 04/07/2015. On exam this morning, patient reports no recurrent episodes of chest discomfort overnight or since arriving to the hospital. Recommend LHC later today. Continue heparin gtt until procedure and NPO diet. (2) CAD (coronary artery disease) Current Visit: Yes Status: Chronic History of CAD s/p PCI x5 in 2010. Continue aspirin, plavix, and beta andrew. Stop simvastatin; start lipitor 80mg daily. Qualifiers: Coronary Disease-Associated Artery/Lesion type: [place] artery [place] vs. transplanted heart: [place] heart Associated angina: angina presence unspecified Qualified Code(s): I25.10 - Atherosclerotic heart disease of [place] coronary artery without angina pectoris (3) Hyperlipidemia Current Visit: Yes Status: Acute HIstory of hyperlipidemia. Fasting lipid panel obtained this morning is significant for elevated triglycerides. Recommend initiating high-intensity statin therapy with lipitor 80mg QHS; stop simvastatin 40mg QHS. Qualifiers: Hyperlipidemia type: unspecified Qualified Code(s): E78.5 - Hyperlipidemia, unspecified (4) HTN (hypertension) Current Visit: No Status: Chronic History of hypertension; appears well-controlled. Continue home medications of metoprolol 50mg, lisinopril 20mg BID, and amlodipine 2.5mg daily. Qualifiers: Hypertension type: essential hypertension Qualified Code(s): I10 - Essential (primary) hypertension Discussion w patient/family: The assessment and plan as outlined above was discussed with the patient and/or family members who expressed understanding and agreement. All questions were answered. Thank you for involving us in the care of your patient. Please call with any questions. History of Present Illness Consult date: 01/18/19 Requesting physician: Liza Martinez Consult reason: Chest pain, elevated troponin Chief complaint: Chest pain History of present illness: Mr. Jordan is a 68 year old male with a history of CAD s/p PCI x5 in 2010, HTN, HLD, DM2, and RA. He presented to the ED yesterday for evaluation of intermittent chest pain x4 days. He describes this pain as a "burning" sensation, similar to what he has experienced in the past with acid reflux; however, he states that this pain occurs in the middle of his chest and radiates to his throat, whereas his reflux symptoms are epigastric in origin. He states that he tried taking tums for his discomfort, which did provide some temporary relief, though his symptoms did recur. He states that this episodes have been occurring with increasing frequency over the last few days, and are not triggered by anything specific. He reports symptoms both at rest and with exertion. He denies any associated diaphoresis, nausea, or vomiting. ECG performed in the ED demonstrated sinus rhythm with rate of 70 and IVCD. Laboratory studies were significant for elevated troponin of 0.05, 0.15, 0.23. Patient was started on a heparin gtt overnight. Cardiology consult placed for recommendations regarding patient's chest pain and elevated troponin. Previous cardiac testing/interventions: * Echocardiogram 03/15/2018: LVEF 60%. Mild left ventricular diastolic dysfunciton. Mild-moderate aortic regurgitation. Mild pulmonic regurgitation. * Regadenoson Nuclear Stress Test 03/15/2018: Perfusion imaging negative for ischemia or infarct. Pharmacologic stress ECG negative for ischemia. Gated EF >70%. * Echocardiogram 12/11/2016: LVEF 55-60%. Mild concentric LVH. Mild left ventricular diastolic dysfunction. Mild aortic regurgitation. Mild pulmonic regurgitation. * Regadenoson Nuclear Stress Test 12/11/2016: Pharmacologic stress ECG nondiagnostic for ischemia due to baseline non-specific ST and T changes. Gated EF >70%. Small sized, mild to moderate intensity, fixed basal to mid inferolateral defect. Perfusion slightly worse on rest imaging and wall motion is normal. Findings most suggestive of artifact. Perfusion imaging negative for ischemia or infarct. * [facility] 04/30/2011: LAD 70-80% mid (small caliber) treated w/POBA. Post-stenosis 25-30%. D1-20%. LCX- occluded prior stent in OM1; restented w/RAEANN. RCA- dominant. Pre-existing stent from prox-mid RCA had 55% ISRS. EF 55-60%. Past Med Surg Social Fam HX - Past Medical History Medical history: coronary artery disease, diabetes, hypertension, myocardial infarction, RA Additional medical history: SBO Psychiatric history: no psych history - Past Surgical History Surgical History: cholecystectomy Additional surgical history: Stents x 5 - Social History Smoking Status: Never smoker Smokeless Tobacco Status: No Alcohol use: none Drug use: none - Family History Father Living Status: Hx Family Cardiac Disorders: Yes Hx Family Respiratory Disorders: Yes (COPD) Hx Family GI Disorders: Yes (Colitis) Brother Living Status: Still Living Hx Family Cardiac Disorders: Yes (SD) Medications and Allergies Clopidogrel [Plavix] 75 mg PO DAILY 03/14/18 [History] Folic Acid 1 mg PO DAILY 03/14/18 [History] Lisinopril [Zestril] 20 mg PO BID 03/14/18 [History] Metformin HCl 1,000 mg PO BID 03/14/18 [History] Metoprolol Succinate [Toprol Xl] 50 mg PO DAILY 03/14/18 [History] Omeprazole [PriLOSEC] 20 mg PO DAILY 03/14/18 [History] Simvastatin [Zocor] 40 mg PO HS 03/14/18 [History] Aspirin 81 mg PO DAILY tab.chew 03/15/18 [Rx] Adalimumab [Humira] 40 mg SQ Q2W 01/18/19 [History] Amlodipine Besylate 2.5 mg PO DAILY 01/18/19 [History] Ascorbate Calcium [Vitamin C] 500 mg PO DAILY 01/18/19 [History] Fluticasone Propionate Nasal [Flonase] 50 mcg NS DAILY 01/18/19 [History] Glimepiride [Amaryl] 2 mg PO 0800 01/18/19 [History] Lactobacillus Acidophilus/Fos [Acidophilus Probiotic Tablet] 1 each PO DAILY 01/18/19 [History] Allergy/AdvReac Type Severity Reaction Status Date / Time metronidazole [From Flagyl] Allergy Nausea Verified 03/14/18 10:11 midazolam [From Versed] Allergy Anxiety Verified 03/14/18 10:11 All Systems Review: The remainder of the systems were reviewed and are negative - Constitutional Constitutional: no fatigue, no weakness - Cardiovascular Cardiovascular: chest pain at rest, chest pain with exertion, radiating jaw, neck or arm pain, no diaphoresis, no dyspnea at rest, no dyspnea on exertion, no irregular heart rhythm, no leg edema, no palpitations - Respiratory Respiratory: no dyspnea - Gastrointestinal Gastrointestinal: no nausea Physical Examination Vital Signs, Last 4 Hours Temp Pulse Resp BP Pulse Ox 01/19/19 07:49 97.7 F 62 17 124/78 96 General: Conversant, No Apparent Distress HEENT: Atraumatic, Normocephaly, Mucus Membranes Moist Cardiac: Reg Rate and Rhythm, Normal S1 and S2, No Murmur Lungs: Normal Breath Sounds, No Wheeze, Rales, Rhonchi Neuro: Alert and responsive, No focal deficits noted Abdomen: Soft, Non-Tender Skin: No rashes noted on visualized skin Musculoskeletal: No Chest Wall Tenderness Extremities: No Clubbing, No Cyanosis, No Edema, Normal Pulses Results 01/18/19 16:40 01/18/19 10:13 Lab Results 01/18/19 01/18/19 01/18/19 10:13 10:13 10:13 WBC 6.8 Hgb 13.0 Hct 39.6 Plt Count 231 INR 1.0 APTT 31.8 Sodium 137 Potassium 4.2 Chloride 101 Carbon Dioxide 26 BUN 13 Creatinine 0.90 Glucose 315 H Calcium 9.3 Troponin I 0.05 H* 01/18/19 01/18/19 01/18/19 15:34 16:40 16:40 WBC 7.7 Hgb 13.0 Hct 38.7 Plt Count 237 INR 0.9 APTT Sodium Potassium Chloride Carbon Dioxide BUN Creatinine Glucose Calcium Troponin I 0.15 H* 01/18/19 23:03 WBC Hgb Hct Plt Count INR APTT Sodium Potassium Chloride Carbon Dioxide BUN Creatinine Glucose Calcium Troponin I 0.23 H* Consult Discharge Plan - Plan Referrals: Pricila Funk CNP [Primary Care Provider] - 01/24/19 10:00 am <Nieves Cespedes - Last Filed: 01/19/19 10:56> Date of Encounter: 01/19/19 - Attending Attestation I examined this patient and my medical decision-making was reviewed with the Resident Physician. I agree with the documented findings, disposition and treatment plan as described. Mr. Jordan presents with chest discomfort and elevated troponin. Patient reports feeling unusually fatigued over the past month. Developed intermittent chest burning exacerbated by exertion and occurring at rest over the past 4 days. No discomfort since admission. AAOx3, NAD on exam No appreciable cardiac murmur, normal breath sounds, palpable distal pulses Labs demonstrate elevated troponin, normal Hgb/plt/INR ECG demonstrates NSR with new TWI high lateral leads when compared to ECG 04/07/2015. Impression/Plan: 1. NSTEMI: Known history of CAD presenting with chest discomfort, elevated troponin and mild changes in ECG. Discussed options with patient including R/B/A of C. The patient expressed understanding and has decided to proceed. All questions answered. Normal renal function. No upcoming elective surgeries. Compliant with medications. Known allergy to midazolam. Continue heparin gtt, asa/plavix, statin, BB. 2. Dyslipidemia: Lipids reviewed. Recommend high intensity statin. 3. CAD: Last [facility] from 2010 was reviewed. Recommend antiplatelet agent, statin. Assessment and Plan Discussion w patient/family: The assessment and plan as outlined above was discussed with the patient and/or family members who expressed understanding and agreement. All questions were answered. Thank you for involving us in the care of your patient. Please call with any questions. History of Present Illness History of present illness: Mr. Jordan is a 68 year old male All Systems Review: The remainder of the systems were reviewed and are negative Physical Examination Vital Signs, Last 4 Hours Temp Pulse Resp BP Pulse Ox 01/19/19 07:49 97.7 F 62 17 124/78 96 Results 01/18/19 16:40 01/18/19 10:13 Lab Results 01/18/19 01/18/19 01/18/19 10:13 10:13 15:34 WBC Hgb Hct Plt Count INR 1.0 APTT 31.8 Sodium 137 Potassium 4.2 Chloride 101 Carbon Dioxide 26 BUN 13 Creatinine 0.90 Glucose 315 H Calcium 9.3 Troponin I 0.05 H* 0.15 H* 01/18/19 01/18/19 01/18/19 16:40 16:40 23:03 WBC 7.7 Hgb 13.0 Hct 38.7 Plt Count 237 INR 0.9 APTT Sodium Potassium Chloride Carbon Dioxide BUN Creatinine Glucose Calcium Troponin I 0.23 H* 01/19/19 08:49 WBC Hgb Hct Plt Count INR APTT Sodium Potassium Chloride Carbon Dioxide BUN Creatinine Glucose Calcium Troponin I 0.15 H*
[2019-01-19] MEDS: amLODIPine 5 MG TABLET PO SCH (08:52)
[2019-01-19] MEDS: Folic Acid 1 MG TABLET PO SCH (08:52)
[2019-01-19] MEDS: Ascorbic Acid 500 MG TABLET PO SCH (08:52)
[2019-01-19] MEDS: Aspirin 81 MG TAB.CHEW PO SCH (08:52)
[2019-01-19] MEDS: Fluticasone Propionate Nasal 50 MCG/SPRAY BOTTLE NS SCH (08:53)
[2019-01-19] MEDS: Metoprolol XL (24 HR) Succ 50 MG TAB.ER.24H PO SCH (10:17)
[2019-01-19] MEDS ORDERED: 0.9 % Sodium Chloride 1,000 ML ONE ×2 (12:33→12:34)
[2019-01-19] MEDS ORDERED: Heparin 1,000 UNITS/500 mL 500 ML ONE (12:34)
[2019-01-19] MEDS ORDERED: ISOVUE-370 200 ML INFUS..BTL ONE (12:34)
[2019-01-19] MEDS ORDERED: Nitroglycerin 1,000 MCG/10 ML VIAL IV ONE (12:34)
[2019-01-19] MEDS ORDERED: *HR* Heparin 10,000 UNIT/10 ML VIAL ONE (12:34)
--- NOTE | 2019-01-19 12:39 | Internal Med Progress Note ---
Hospitalist Progress Note - Encounter Date of Encounter: 01/19/19 Time of Encounter: 11:30 - Subjective Interval History: Mr. Jordan is a 68 year old male with known past medical history of CAD status post PCI x 5, hypertension, hyperlipidemia , rheumatoid arthritis and DM2 pt presented to ER with chest pain from last 3-4 days. His CP is more like inte rmittent, located sub sternally, non-radiating, 6/10 in severity and more like burning / pressure type pain. In the ER his EKG showed NSR, No ST, T changes. His initial trop was elevated @ 0.05. Pt was admitted in the hospital and placed him on repack room worker. His serial trop trended up , peaked @ 0.23 and now started trending down. He was started on heparin gtt and pt denied any active CP now. No more SOB / SINGH - Exam Vitals: Temp Pulse Resp BP Pulse Ox 97.9 F 60 16 133/91 94 01/19/19 12:10 01/19/19 12:10 01/19/19 12:10 01/19/19 12:10 01/19/19 12:10 Exam: Gen: Alert, awake, Oriented to time,place and person Chest: Diminished breath sounds B/L, No wheezing, No crackles, No rales Heart: S1S2+ RRR No murmurs Abd: Soft, NT, BS +, No organomegaly Ext: No edema, pulses are palpable, No calf tenderness Neuro : No acute focal neuro deficits noticed Skin: No rash. - Assessment and Plan (1) NSTEMI (non-ST elevated myocardial infarction) Current Visit: Yes Status: Acute Assessment and Plan: He does have NSTEMI His trop peaked at 0.23 and trending down cont Heparin gtt cont ASA, Plavix, statin and BB Scheduled for LHC today (2) Chest pain Current Visit: No Status: Acute Assessment and Plan: Trop peaked at 0.23 and started trending down cont Heparin gtt Cont ASA, Plavix, Metoprolol and statin Reviewed his FLP Card is on board.. appreciate recommendations scheduled for LHC today Patient does need to stay in the hospital more than 2 midnights due to his complex medical problems. So we will change him to full admission today. I did review my H & P including HPI, PMH, PSH, FH, SH, and ROS no changes noticed (3) CAD (coronary artery disease) Current Visit: Yes Status: Chronic Assessment and Plan: Cont all home meds (4) Diabetes Current Visit: No Status: Chronic Assessment and Plan: on ADA diet Reviewed HbA1c on ISS held po meds (5) HTN (hypertension) Current Visit: No Status: Chronic Assessment and Plan: Stable with home meds - Time Spent with Patient Total time spent is greater than 50% in coordination of care (as documented) at patient's floor/unit and/or counseling patient: Internal Medicine: Result - Labs CBC & Chem 7: 01/18/19 16:40 01/18/19 10:13 Labs: Short CBC 01/18/19 Range/Units 16:40 WBC 7.7 (4.3-11.1) K/mcL Hgb 13.0 (12.9-16.9) g/dL Hct 38.7 (37.5-50.1) % Plt Count 237 (140-400) K/mcL Cardiac Enzymes 01/18/19 01/18/19 01/19/19 Range/Units 15:34 23:03 08:49 Troponin I 0.15 H* 0.23 H* 0.15 H* (< 0.04) ng/mL - ABG Interpretation ABG results: PT/INR, D-dimer PT 10.7 Seconds (9.4-12.1) 01/18/19 16:40 Consult Discharge Plan - Plan Referrals: Pricila Funk FA[employer] EXPERT [Primary Care Provider] - 01/24/19 10:00 am (2) Chest pain Qualifiers: Chest pain type: chest pain due to myocardial ischemia Ischemic chest pain type: unstable angina pectoris Qualified Code(s): I20.0 - Unstable angina (3) CAD (coronary artery disease) Qualifiers: Coronary Disease-Associated Artery/Lesion type: [place] artery [place] vs. transplanted heart: [place] heart Associated angina: angina presence unspecified Qualified Code(s): I25.10 - Atherosclerotic heart disease of [place] coronary artery without angina pectoris (4) Diabetes Qualifiers: Diabetes mellitus type: type 2 Diabetes mellitus skilled nursing insulin use: without skilled nursing use Diabetes mellitus complication status: without complication Qualified Code(s): E11.9 - Type 2 diabetes mellitus without complications (5) HTN (hypertension) Qualifiers: Hypertension type: essential hypertension Qualified Code(s): I10 - Essential (primary) hypertension
[2019-01-19] MEDS ORDERED: *HR* FentaNYL (PF) 100 MCG/2 ML VIAL ONE (12:54)
--- NOTE | 2019-01-19 12:55 | Pre-Sedation Evaluation ---
Pre-sedation evaluation - Pre-sedation checklist Date of procedure: 01/19/19 Procedure: [facility] Recent Vitals: Last Vital Signs Temp 97.9 F 01/19/19 12:10 Pulse 60 01/19/19 12:10 Resp 16 01/19/19 12:10 BP 133/91 01/19/19 12:10 Pulse Ox 94 01/19/19 12:10 H&P (including ROS) documented in medical record: Yes Previous reaction to sedatives/anesthetics: Yes; explain in comment Dietary Status: NPO after Midnight Airway Assessment: Patient can open mouth completely, TMJ function normal, Micrognathia (under-bite, receding chin) absent, Neck with adequate range of motion Dentition: poor dentition Possible difficult airway: No ASA Classification *see protocol: CLASS II-Mild systemic disease Plan of Care: Pt appropriate candidate for procedure/moderate/conscious sedation, Risks/benefits of procedure/sedation discussed w/ patient/family Cardiac Registry (Cardio Only) - Functional Capacity Functional Capacity: < 4 METS - Clincal Frailty Scale Clinical Frailty Scale: Vulnerable
[2019-01-19] MEDS ORDERED: *HR* Bivalirudin 250 MG VIAL IVC ONE (13:09)
[2019-01-19] MEDS ORDERED: Ondansetron 4 MG/2 ML VIAL ONE (13:19)
--- NOTE | 2019-01-19 14:44 | Invasive Diagnostic Lab Proc ---
Name: Chris Jordan Date of Study: 01/19/2019 Date: 1950 Ht: 61.0in Medical Record#: [id number] Age: 68 Wt: 169.32lb Gender: Male BSA: 1.76 Order #: [id number] BMI: 32.01 Physicians Procedure Physician: Vangie Marti MD, FACC Referring MD: Referring MD: Staff Name Position Time In Tong Waddell RT (R) Scrub 12:47 PM BaironFloridalma RT (R) Monitor 12:47 PM Hamilton Mandujano RN Information Assoc 12:47 PM Indications Indication Non-Stemi Procedures Performed Procedure L HRT ARTERY/VENTRICLE ANGIO PRQ CARD RAEANN STENT W/ANGIO 1 VSL Pre-Procedure Checklist Informed consent is complete signed and on chart. H&P is on chart. ID band is on and ID verified with patient. Patient NPO for procedure The procedure was described for the patient and questions were answered. Blood Pressure: 124/78 ECG is on chart. Rhythm: NSR Plan of Care Patient will tolerate the procedure without complications. Adequate level of comfort will be maintained. Hemodynamics will remain stable Patient will recover from procedure without complications. Respiratory function will be maintained. Cardiac rhythm will remain stable. Patient temperature will be maintained. Patient and/or family have verbalized understanding of the procedure. Patient Education Chief Complaint/Reason for Test: Cardiac Cath Developmental Category: Geriatric (65+ years) Developmentally Appropriate for Age: Yes Learning Barriers: None Education Needs: Procedure Education Method: Verbal Information Taught: Cardiac Cath Educational Evaluation: Able to repeat information Intravenous Access Time IV Size Location DC'd Fluid/Drip Rate Units RN 12:46 PM 20g 1 /" Patent On Arrival Rt Antecubital 0.9NaCl Allergies metronidazole midazolam Vital Signs Time BP (mmHg) HR (bpm) O2 Sat. RR (bpm) LOC 12:47 PM / % 5 = Fully awake and oriented or at pre-proc level 12:47 PM / % 4 = Oriented but drowsy 01:02 PM / % 4 = Oriented but drowsy 12:56 PM 165 / 93 63 96 % 22 01:00 PM 179 / 97 64 93 % 19 01:05 PM 144 / 87 65 98 % 22 01:10 PM 156 / 83 60 97 % 22 01:45 PM 135 / 89 58 95 % 16 5 = Fully awake and oriented or at pre-proc level 02:00 PM 127 / 70 53 98 % 14 5 = Fully awake and oriented or at pre-proc level 02:15 PM 137 / 83 56 98 % 20 5 = Fully awake and oriented or at pre-proc level 02:30 PM 134 / 66 62 94 % 18 5 = Fully awake and oriented or at pre-proc level Procedural Medications Time Medication Dose Units Method Given By 12:57 PM Fentanyl 50 mcg Intravenous Hamilton Mandujano RN 12:57 PM Benadryl 25 mg Intravenous Hamilton Mandujano RN 12:58 PM Oxygen 2 L/min nasal cannula Hamilton Mandujano RN 01:02 PM Lidocaine 2% 19 ml Subcutaneous Vangie Marti MD, [facility] 01:11 PM Angiomax 0.75mg/kg bolus: 11 ml Intravenous Hamilton Mandujano RN 01:12 PM Angiomax 1.75mg/kg/hr: 26 ml Intravenous Hamilton Mandujano RN 01:20 PM Zofran 4 mg Intravenous Hamilton Mandujano RN 01:21 PM Benadryl 25 mg Intravenous Hamilton Mandujano RN 01:25 PM Nitroglycerin 200 mcg Intracoronary Vangie Marti MD, [facility] ASA Classification: CLASS II- Mild systemic disease (i.e. well-controlled diabetes, hypertension, asthma, cigarette smoking) Ramírez Score Preprocedure Postprocedure Activity 2- Moves 4 extremities sustained head lift Activity 2- Moves 4 extremities sustained head lift Circulation 2- SBP +/= 20 points of pre-anesthetic level Circulation 2- SBP +/= 20 points of pre-anesthetic level Consciousness 2- Awake and alert oriented x 3 Consciousness 2- Awake and alert oriented x 3 O2 Saturation 2- Able to maintain O2 satruation of 92% on room air O2 Saturation 2- Able to maintain O2 satruation of 92% on room air Respiratory 2- Able to deep breathe and cough well Respiratory 2- Able to deep breathe and cough well Total Score 10 Total Score 10 Contrast Agent: Isovue Diagnostic Contrast: 105 ml Total Contrast: 105 ml Fluoro Dose: 31 mGy Procedure Log Time Note Enter By 12:47 PM 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 2 at 12:47 twilson 12:47 PM Tong Waddell RT (R) Position: Scrub Time in: 12:47 twilson 12:47 PM Floridalma Waddell RT (R) Position: Monitor Time in: 12:47 twilson 12:47 PM Hamilton Mandujano RN Position: Information Assoc Time in: 12:47 twilson 12:47 PM Patient charges- Angio tray pack, Navilyst 3mm J, Pulse Oximetry and ACIST tubing and transducer twilson 12:47 PM Case Delayed no twilson 12:47 PM Time: 12:47 Patient comfortable and pain free: Yes twilson 12:47 PM Time: 12:47LOC: 5 = Fully awake and oriented or at pre-proc level twilson 12:48 PM CathStat 12:51 PM Physician arrived 12: twilson 12:51 PM Meet and greet completed twilson 12:51 PM Sign in performed according to hospital policy. Informed consent was obtained. twilson 12:51 PM Procedure start 12:51 twilson 12:54 PM CathStat 12:54 PM Vitals capture started with the following parameters, Patient=Adult, Interval=5 min, Initial Wcmhrxyp=808 mmHg, Deflation Rate=3 mmHg, Cuff placed on Right Arm 12:55 PM Hair removed from procedure site in procedure lab using clippers. Bilateral groin prepped with Chloraprep by Floridalma Waddell), then patient was draped. Skin intact. twilson 12:56 PM HR=63 bpm, EBNM=414/93 mmhg, SpO2=96.0 %, Resp=22 B/min 12:57 PM Time: 12:57 Fentanyl 50 mcg Intravenous Given by Hamilton Mandujano RN twilson 12:57 PM Time: 12:57 Benadryl 25 mg Intravenous [facility] 12:58 PM Time: 12:58 Oxygen on at 2 L/min per nasal cannula by Hamilton Mandujano RN twilson 12:59 PM ASA Class CLASS II- Mild systemic disease (i.e. well-controlled diabetes, hypertension, asthma, cigarette smoking) twilson 12:59 PM Pressure channel 1 zeroed. 01:00 PM HR=64 bpm, GDXY=948/97 mmhg, SpO2=93.0 %, Resp=19 B/min 01:02 PM Time out was performed according to hospital policy. Conscious sedation and anesthesia was achieved (see medication log with in this report above) twilson 01: PM Time: 12:47 Patient comfortable and pain free: Yes twilson : PM Time: 12:47LOC: 4 = Oriented but drowsy twilson 01:02 PM Time: 13:02 19 ml Lidocaine 2% to right groin Subcutaneous Given by Vangie Marti MD, [facility] twilson 01:03 PM Access obtained by percutaneous puncture. 5Fr 10cm Terumo Stanton sheath placed in right Femoral artery. [id number] twilson 01:03 PM 5Fr FL 4 catheter inserted over the wire DN twilson 01:03 PM Wire removed twilson :03 PM Recorded Pressure: Ao, HR=62, Condition=Condition 1 (Aorta) Ao 142/75/103 01:04 PM LCA angiography performed in multiple views. twilson 01:05 PM Wire reinserted. twilson 01:05 PM Catheter removed twilson 01:05 PM HR=65 bpm, YCFV=825/87 mmhg, SpO2=98.0 %, Resp=22 B/min 01:05 PM 5Fr FR 4 catheter inserted over the wire [facility] twilson 01:05 PM Wire removed twilson 01:06 PM RCA angiography performed in multiple views. twilson 01:06 PM Recorded Pressure: Ao, HR=64, Condition=Condition 1 (Aorta) Ao 122/73/95 01:07 PM Wire reinserted. twilson 01:07 PM Catheter removed twilson :08 PM Pressure channel 1 zeroed. 01:08 PM Recorded Pressure: LV, HR=63, Condition=Condition 1 (Left Ventricle) LV 154/-11/6 01:08 PM 5Fr Pigtail catheter inserted over the wire [facility] twilson :08 PM Catheter crossed the aortic valve and was selectively placed in the left ventricle. Pressures recorded on pullback for left heart catheterization. twilson 01:08 PM Wire removed twilson :08 PM Coronary Dominance: right twilson 01:08 PM Bolus angiogram of left Ventricle complete: 8 ml/sec for a total of 24 mls twilson 01:08 PM Wire reinserted. twilson 01:09 PM Catheter removed twilson 01:09 PM Recorded Pressure: LV, Ao, HR=62, Condition=Condition 1 (Left Ventricle) LV 143/21/24, (Aorta) Ao 145/81/110 01:10 PM Sheath exchanged for a 6 Fr 11 cm Terumo Stanton sheath [id number] twilson 01:10 PM Inflation device was opened. twilson 01:10 PM HR=60 bpm, VQFK=020/83 mmhg, SpO2=97 %, Resp=22 B/min 01:10 PM PCI Status Urgent twilson 01:10 PM PCI lesion in Mid RCA. Pre Stenosis: 99 Pre SB Flow: 2: Partial Flow/Perfusion (> 1 but < 3) twilson 01:10 PM PCI lesion in Mid RCA. twilson 01:12 PM Time: 13:11 Angiomax 0.75mg/kg bolus: 11 ml Intravenous Given by Hamilton Mandujano RN Ribeiro pump twilson 01:12 PM Time: 13:12 Angiomax 1.75mg/kg/hr: 26 ml Intravenous Given by Hamilton Mandujano RN Ribeiro pump twilson 01:12 PM 6Fr JR 4 Runway guide catheter was used to cannulate the PCI vessel successfully. reused? No twilson 01:12 PM Right Coronary, Right Posterior Descending Arteries with Right Posterolateral and Acute Marginal branches with 99 % stenosis. If graft is supplying this area, 0 % stenosis twilson 01:13 PM .014 Prowater 190cm guide wire across target lesion- successful. reused? No twilson 01:14 PM 2.0 mm x 20 mm Emerge Monorail balloon across target lesion- successful. reused? No twilson 01:15 PM Balloon inflated @ 14 sylvia for 20 seconds twilson 01:15 PM Balloon inflated @ 14 sylvia for 20 seconds twilson 01:16 PM Balloon catheter removed intact. twilson 01:17 PM 2.75mm x 38mm Synergy drug-eluting stent across target lesion- successful Lot #[id number] twilson 01:17 PM Time: 13:02LOC: 4 = Oriented but drowsy twilson 01:17 PM Time: 13:02 Patient comfortable and pain free: Yes twilson 01:18 PM Stent deployed @ 14 sylvia for 30 seconds twilson 01:20 PM Stent balloon reinflated @ 18 sylvia for 20 seconds twilson 01:20 PM Time: 13:20 Zofran 4 mg Intravenous Given by Hamilton Mandujano RN twilson 01:21 PM Time: 13:21 Benadryl 25 mg Intravenous Given by Hamilton Mandujano RN twilson 01:21 PM Stent delivery system removed intact. twilson 01:22 PM 3.0mm x 12mm Synergy drug-eluting stent across target lesion- successful Lot #[id number] twilson 01:23 PM Stent deployed @ 12 sylvia for 30 seconds twilson 01:24 PM Stent balloon reinflated @ 14 sylvia for 30 seconds twilson :24 PM Stent balloon reinflated @ 16 sylvia for 15 seconds twilson 01:25 PM Stent balloon reinflated @ 16 sylvia for 15 seconds twilson 01:25 PM Patient will go to 2N5 when procedure is complete. twilson 01:25 PM Stent delivery system removed intact. twilson 01:26 PM Time: 13:25 Nitroglycerin 200 mcg Intracoronary Given by Vangie Marti MD, FACC twilson :27 PM Guide wire removed intact. twilson :27 PM Guide catheter removed intact. twilson :27 PM Bolus angiogram of right Femoral complete: 2 ml/sec for a total of 4 mls twilson 01:28 PM Procedure completed at 13:28 01/19/2019 twilson 01:29 PM Did you address SB flow and Dominance? YesCoronary Dominance: right twilson 01:30 PM Sign out completed: Radiation Dose 202.62 mGy, 30.8 Gy/cm2 Fluoro Time: 6.4 Isovue 370 - 200ml contrast 105 ml given by Vangie Marti MD, FAC. Complications: None. The patient was discharged out of the rn cardiac cath in stable condition. Sedation minutes 33. Cardiac Rehab Consult needed: Yes. Confirmed administered medications: Yes twilson :33 PM Isovue 370 - 200ml,1 Bottle(s) used. twilson 01:33 PM Sheath left in place to be pulled on floor/holding areaV+Pad twilson 01:33 PM Estimated Blood Loss: less than 20cc twilson :33 PM Post ECG NSR twilson 01:33 PM Post Blood Pressure 133/78 twilson 01:33 PM 13:33 Post Pulses Bilateral DP & PT 2+ twilson 01:34 PM 13:34 Post Pulses Bilateral radial 2+ twilson 01:34 PM PCI lesion in Mid RCA. Pre Stenosis: 70 Pre SB Flow: 2: Partial Flow/Perfusion (> 1 but < 3) twilson 01:37 PM Report given to Kathrine AVILA Pt taken to Holding room Room #1. 13:37 twilson 01:37 PM Site status No bleeding/hematoma - Rt Groin as reported by Tong Waddell RT (R) at 13:37 twilson 01:37 PM Opsite applied twilson 01:37 PM Delay to floor waiting foe room to be cleaned twilson 01:37 PM Patient out of room: 13:37 twilson 01:38 PM Lesion found in Proximal LAD. Pre Stenosis: 30 Pre SB Flow: twilson 01:38 PM Lesion found in Mid LAD. Pre Stenosis: 40 Pre SB Flow: twilson 01:38 PM Lesion found in Proximal Circumflex. Pre Stenosis: 40 Pre SB Flow: twilson 01:38 PM Lesion found in 2nd Marginal. Pre Stenosis: 100 Pre SB Flow: twilson 01:38 PM Proximal Left Anterior Descending Coronary Artery with 30% stenosis. If graft is supplying this territory, 0 % stenosis. twilson 01:38 PM Mid/Distal Left Anterior Descending Coronary Artery and diagonal branches with 40% stenosis. If graft is supplying this area, 0 % stenosis twilson 01:38 PM Circumflex, Obtuse Marginal, Left Posterior Descending, and Left Posterolateral Coronary Arteries with 100 % stenosis. If graft is supplying this area, 0 % stenosis twilson 02:34 PM Angiomax gtt off at present. kwitte 02:37 PM Delay to floor Bed availability kwitte 02:37 PM Complications: None kwitte 02:39 PM Report given to Donya AVILA Pt taken to Holding room Room #2N5. 14:39 kwitte 02:39 PM Patient out of room: 14:39 kwitte Complications Complication None None Hemodynamics Pressures Site Systolic/A Wave Diastolic/V Wave Mean AO 142 75 103 AO 122 73 95 LV 154 -11 6 LV 143 21 24 AO 145 81 110 Post Procedure Information Blood Pressure: 133/78 mmHg Rhythm: NSR Post procedural instructions were given Site Checks Time Location Status Staff Sheath In? Note 01:37 PM Rt Groin No bleeding/hematoma Tong Waddell RT (R) Yes 01:45 PM Rt Groin No bleeding/ No Hematoma Bhaskar Washburn RN Yes 02:00 PM Rt Groin No bleeding/ No Hematoma Jennifer Chapman RN Yes 02:15 PM Rt Groin No bleeding/ No Hematoma Bhaskar Washburn RN Yes 02:30 PM Rt Groin No bleeding/ No Hematoma Bhaskar Washburn RN Yes Pulses Time Site Pre-Procedure Post-Procedure Note 01/19/2019 12:46:00 PM Bilateral DP 2+ 01/19/2019 12:46:00 PM Bilateral radial 2+ 1:33:00 PM Bilateral DP & PT 2+ 1:34:00 PM Bilateral radial 2+ 01/19/2019 1:45:00 PM Bilateral DP & PT 2+ 01/19/2019 2:30:00 PM Bilateral DP & PT 2+ Updated by Bhaskar Washburn RN on 01/19/2019 2:39:58 PM Bhaskar Washburn RN electronically signed on 01/19/2019 2:40:28 PM with status of Final
[2019-01-19] MEDS ORDERED: *HR* Atropine Sulfate 1 MG/10 ML SYRINGE ONE (16:43)
[2019-01-20 06:20] LABS: Hematocrit 38.6 % (37.5-50.1); Hemoglobin 12.8 g/dL (12.9-16.9); Mean Corpuscular HGB Conc 33.2 g/dL (31.6-35.5); Mean Corpuscular Hemoglobin 30.2 pg (28.0-33.3); Mean Platelet Volume 10.3 fL (9.4-12.4); Platelet Count 233 K/mcL (140-400); Red Blood Count 4.24 M/mcL (4.19-5.50); Red Cell Distribution Width 13.1 % (11.5-14.5)
[2019-01-20 06:42] LABS: BUN/Creatinine Ratio 13 (6-26); Blood Urea Nitrogen 12 mg/dL (8-23); Calcium 9.5 mg/dL (8.6-10.3); Carbon Dioxide 29 mEq/L (23-29); Chloride 103 mEq/L (98-107); Glucose 106 mg/dL (70-105); Osmolality,Calculated 296 (280-300); Potassium 4.1 mEq/L (3.5-5.1); Sodium 143 mEq/L (136-145); eGFR For African Americans > 60 (> 60); eGFR For Non-African Americans > 60 (> 60)
[2019-01-20 07:45] VITALS: BP 121/80
--- NOTE | 2019-01-20 08:19 | Cardiology Progress Note ---
Date of Encounter: 01/20/19 Time of Encounter: 08:19 Assessment and Plan (1) NSTEMI (non-ST elevated myocardial infarction) Status: Acute Patient presented with intermittent chest pain and elevated troponins of 0.05, 0.15, 0.23, 0.15. ECG was significant for T-wave inversions in lead I and aVL that are new compared to prior study dated 04/07/2015. Patient underwent LHC yesterday afternoon and was found to have double vessel coronary artery disease. Left ventricle noted to be normal, with normal contractility and EF 50%. Patient had successful PTCA/Drug-Eluting Stent placed in the proximal-mid RCA. On exam this morning, patient denies any recurrent chest pain, palpitations, or other cardiac symptoms. He has no evidence of swelling or hematoma formation around catheter insertion site in right groin. Recommend continuing current medical therapy, as well as dual antiplatelet therapy with aspirin and plavix. Patient will need outpatient cardiology followup for ongoing management. (2) CAD (coronary artery disease) Status: Chronic History of CAD s/p PCI x5 in 2010. Day 1 s/p PTCA/drug-eluting stent placement in the proximal-med RCA. Continue aspirin, plavix, and beta andrew. Continue high-intensity statin therapy with lipitor 80mg daily. Qualifiers: Coronary Disease-Associated Artery/Lesion type: [place] artery [place] vs. transplanted heart: [place] heart Associated angina: with unstable angina Qualified Code(s): I25.110 - Atherosclerotic heart disease of [place] coronary artery with unstable angina pectoris (3) Hyperlipidemia Status: Acute History of hyperlipidemia. Continue lipitor. Qualifiers: Hyperlipidemia type: unspecified Qualified Code(s): E78.5 - Hyperlipidemia, unspecified (4) HTN (hypertension) Status: Chronic History of hypertension; appears well-controlled. Continue home medications of metoprolol 50mg, lisinopril 20mg BID, and amlodipine 2.5mg daily. Qualifiers: Hypertension type: essential hypertension Qualified Code(s): I10 - Essential (primary) hypertension Discussion w patient/family: The assessment and plan as outlined above was discussed with the patient and/or family members who expressed understanding and agreement. All questions were answered. Thank you for involving us in the care of your patient. Please call with any questions. Subjective Principal diagnosis: NSTEMI Interval history: Patient was seen and evaluated at the bedside. He reports feeling very well this morning, and expresses no new complaints or concerns. He denies any chest pain, shortness of breath, palpitations, dizziness, or lightheadedness. Objective Vital Signs, Last 4 Hours Temp Pulse Resp BP Pulse Ox 01/20/19 07:41 98.2 F 64 17 121/80 93 01/20/19 04:45 97.9 F 65 16 117/61 92 General: Conversant, No Apparent Distress HEENT: Atraumatic, Normocephaly, Mucus Membranes Moist Neck: No JVD, Normal carotid pulses Cardiac: Reg Rate and Rhythm, Normal S1 and S2, No Murmur Lungs: Normal Breath Sounds, No Wheeze, Rales, Rhonchi Neuro: Alert and responsive, No focal deficits noted Abdomen: Soft, Non-Tender Skin: No rashes noted on visualized skin Musculoskeletal: No Chest Wall Tenderness Extremities: No Clubbing, No Cyanosis, No Edema, Normal Pulses, Other Results 01/20/19 05:09 01/20/19 05:09 Lab Results 01/19/19 01/20/19 01/20/19 08:49 05:09 05:09 WBC 9.0 Hgb 12.8 L Hct 38.6 Plt Count 233 Sodium 143 Potassium 4.1 Chloride 103 Carbon Dioxide 29 BUN 12 Creatinine 0.91 Glucose 106 H Calcium 9.5 Troponin I 0.15 H* Consult Discharge Plan - Plan Instructions: Chest Pain (DC), Coronary Intravascular Stent Placement (DC), Coronary Intravascular Stent Placement, Bow Machine Operator (GEN) Additional Instructions: Hold Metformin until ThursdayJanuary 22 Referrals: Pricila Funk CNP [Primary Care Provider] - 01/24/19 10:00 am
[2019-01-20] MEDS: Ascorbic Acid 500 MG TABLET PO SCH (08:27)
[2019-01-20] MEDS: amLODIPine 5 MG TABLET PO SCH (08:27)
[2019-01-20] MEDS: Metoprolol XL (24 HR) Succ 50 MG TAB.ER.24H PO SCH (08:28)
[2019-01-20] MEDS: Insulin LISPRO 300 UNITS/3 ML VIAL SQ SCH (08:28)
[2019-01-20] MEDS: Aspirin 81 MG TAB.CHEW PO SCH (08:28)
[2019-01-20] MEDS: Folic Acid 1 MG TABLET PO SCH (08:28)
[2019-01-20] MEDS: Fluticasone Propionate Nasal 50 MCG/SPRAY BOTTLE NS SCH (08:29)
--- NOTE | 2019-01-20 10:00 | Discharge Summary ---
- NOTES TO OUTPATIENT PROVIDER Notes to Outpatient Provider: Pt presented with chest pain and elevated troponin. Had LHC and stent placement. Orders not resulted at time of discharge: Pending orders 01/19/19 13:38 ECG 12 lead ECG [ECG] Stat 01/20/19 06:00 ECG 12 lead ECG [ECG] AM 0600 Date of Encounter: 01/20/19 Time of Encounter: 09:30 - Discharge Diagnosis (1) NSTEMI (non-ST elevated myocardial infarction) Priority: Primary Status: Acute (2) Chest pain Priority: Secondary Status: Acute Qualifiers: Chest pain type: chest pain due to myocardial ischemia Ischemic chest pain type: unstable angina pectoris Qualified Code(s): I20.0 - Unstable angina (3) Diabetes Priority: Secondary Status: Chronic Qualifiers: Diabetes mellitus type: type 2 Diabetes mellitus half-way insulin use: without half-way use Diabetes mellitus complication status: without comp lication Qualified Code(s): E11.9 - Type 2 diabetes mellitus without complications (4) HTN (hypertension) Priority: Secondary Status: Chronic Qualifiers: Hypertension type: essential hypertension Qualified Code(s): I10 - Essential (primary) hypertension (5) CAD (coronary artery disease) Priority: Secondary Status: Chronic Qualifiers: Coronary Disease-Associated Artery/Lesion type: [place] artery [place] vs. transplanted heart: [place] heart Associated angina: with unstable angina Qualified Code(s): I25.110 - Atherosclerotic heart disease of [place] coronary artery with unstable angina pectoris Hospital course: Mr. Jordan is a 68 year old male presented to ED with complaints of chest pain. He was subsequently placed in observation. Mr Jordan was placed in observation due to chest pain. He has prior hx of CAD. Troponin increased and he was taken to [facility] and stent was placed. He tolerated well and is now afebrile and ready for discharge home. - Time Spent with Patient Total time spent providing and/or coordinating discharge services: 35min - Discharge Medications Prescriptions: Continued Folic Acid 1 mg PO DAILY Clopidogrel [Plavix] 75 mg PO DAILY Simvastatin [Zocor] 40 mg PO HS Omeprazole [PriLOSEC] 20 mg PO DAILY Metoprolol Succinate [Toprol Xl] 50 mg PO DAILY Lisinopril [Zestril] 20 mg PO BID Aspirin 81 mg PO DAILY tab.chew Lactobacillus Acidophilus/Fos [Acidophilus Probiotic Tablet] 1 each PO DAILY Ascorbate Calcium [Vitamin C] 500 mg PO DAILY Adalimumab [Humira] 40 mg SQ Q2W Glimepiride [Amaryl] 2 mg PO 0800 Amlodipine Besylate 2.5 mg PO DAILY Fluticasone Propionate Nasal [Flonase] 1 spray NS DAILY Metformin HCl 1,000 mg PO BID Triamcinolone Acet 0.1% CRM [Kenalog] 1 appl TP BID PRN PRN Reason: PSORIASIS Home Medications: Clopidogrel [Plavix] 75 mg PO DAILY 03/14/18 [History] Folic Acid 1 mg PO DAILY 03/14/18 [History] Lisinopril [Zestril] 20 mg PO BID 03/14/18 [History] Metoprolol Succinate [Toprol Xl] 50 mg PO DAILY 03/14/18 [History] Omeprazole [PriLOSEC] 20 mg PO DAILY 03/14/18 [History] Simvastatin [Zocor] 40 mg PO HS 03/14/18 [History] Aspirin 81 mg PO DAILY tab.chew 03/15/18 [Rx] Adalimumab [Humira] 40 mg SQ Q2W 01/18/19 [History] Amlodipine Besylate 2.5 mg PO DAILY 01/18/19 [History] Ascorbate Calcium [Vitamin C] 500 mg PO DAILY 01/18/19 [History] Fluticasone Propionate Nasal [Flonase] 1 spray NS DAILY 01/18/19 [History] Glimepiride [Amaryl] 2 mg PO 0800 01/18/19 [History] Lactobacillus Acidophilus/Fos [Acidophilus Probiotic Tablet] 1 each PO DAILY 01/18/19 [History] Metformin HCl 1,000 mg PO BID 01/19/19 [History] Triamcinolone Acet 0.1% CRM [Kenalog] 1 appl TP BID PRN 01/19/19 [History] Allergies/Adverse Reactions: Allergy/AdvReac Type Severity Reaction Status Date / Time metronidazole [From Flagyl] Allergy Nausea Verified 01/19/19 15:33 midazolam [From Versed] Allergy Anxiety Verified 01/19/19 15:33 Date of admission: 01/18/19 11:53 Primary care physician: Pricila Funk CNP Consults: 01/18/19 15:47 Consult to Cardiology [CONS] Routine Comment: Consulting Provider: Cardiology Lisa Reason for Consult: Chest pain.. elevated Troponin Time Notified: 15:47 Call Completed: Yes 01/19/19 13:38 Consult to Cardiac Rehabilitation-Phase1 [CONS] Routine Comment: Reason for Consult: post op PCI Call Completed: Yes Discharging clinician: Hoang Abel Anticipated date of discharge: 01/20/19 - Constitutional Vitals: Temp Pulse Resp BP Pulse Ox 98.2 F 64 17 121/80 93 01/20/19 08:30 01/20/19 08:30 01/20/19 08:30 01/20/19 08:30 01/20/19 08:30 General appearance: Present: cooperative, A&O X 3, no acute distress, answers questions appropriately Exam: See below - Head Head exam: Present: normocephalic - Eye Eye exam: Present: EOMI, conjuntiva pink - ENT ENT exam: Present: mucous membranes moist - Neck Neck exam general surgery: Present: supple - Respiratory Respiratory exam: Present: CTAB. Absent: rales, rhonchi, wheezes - Cardiovascular Cardiovascular exam: Present: RRR. Absent: systolic murmur, tachycardia - GI/Abdominal GI/Abdominal exam: Present: soft. Absent: tenderness - Extremities Exam Extremities exam: Present: warm. Absent: tenderness - Neurological Exam Neurological exam: Present: alert, oriented X3 - Skin Skin exam: Present: dry, warm. Absent: rash - Patient Status Disposition: Home, Self-Care Condition: Good Functional capacity at discharge: independent ambulation Overall status at discharge: patient is progressing back to baseline - Discharge Instructions Instructions: Chest Pain (DC), Coronary Intravascular Stent Placement (DC), Coronary Intravascular Stent Placement, Swift Tender (GEN) Follow Up With: Pricila Funk CNP [Primary Care Provider] - 01/24/19 10:00 am Additional Instructions: Hold Metformin until ThursdayJanuary 22 - Diet and Activity Activity: increase activity as tolerated, other (As per cardiology) Diet: diabetic diet, low fat, low cholesterol
[2019-01-20] MEDS ORDERED: *HR* Heparin 5,000 UNIT/ML VIAL SQ SCH (18:00)
[2019-01-21] MEDS ORDERED: (Adalimumab [Humira] 40 MG) SQ SCH (09:00)
== END 2019-01-20 10:58 | disposition home or self-care (01) | DRG 246 ==
LOC: EMEROOARM 09:44 → 3BNU 09:44 → SUATTDRO 11:53 → 3BNU 13:35 → 2NNU 01-19 14:55
PROVIDERS: ADMIT Internal Medicine Nephrology; ATTEND Internal Medicine

== ENCOUNTER 2020-03-16 04:48 | Observation (INO) ==
[2020-03-16] MEDS ORDERED: Aspirin 81 MG TAB.CHEW PO ONE (04:53)
[2020-03-16 05:24] LABS: Basophils % 0.2 %; Eosinophils % 0.5 %; Hemoglobin 13.9 g/dL (12.9-16.9); Immature Granulocytes % 0.4 % (0-4); Lymphocytes # 2.2 K/mcL (0.6-4.6); Lymphocytes % 26.6 %; Mean Corpuscular HGB Conc 33.1 g/dL (31.6-35.5); Mean Corpuscular Hemoglobin 31.2 pg (28.0-33.3); Mean Corpuscular Volume 94.4 fL (83.0-100.0); Mean Platelet Volume 10.1 fL (9.4-12.4); Monocytes # 0.7 K/mcL (0.0-1.3); Monocytes % 8.2 %; Neutrophils # 5.2 K/mcL (1.6-8.9); Platelet Count 265 K/mcL (140-400); Red Blood Count 4.45 M/mcL (4.19-5.50); Red Cell Distribution Width 12.9 % (11.5-14.5); Segmented Neutrophils % 64.1 %; White Blood Count 8.2 K/mcL (4.3-11.1)
[2020-03-16 05:31] LABS: INR 0.9; Prothrombin Time 10.3 Seconds (9.4-12.1)
[2020-03-16 05:34] LABS: Activated Partial Thrombo Time 30.6 Seconds (26.0-36.0)
[2020-03-16 05:51] LABS: Alanine Aminotransferase 33 Units/L (7-52); Albumin 4.3 g/dL (3.5-5.7); Albumin/Globulin Ratio 1.8 (1.1-2.2); Alkaline Phosphatase 49 Units/L (34-104); Aspartate Amino Transferase 19 Units/L (13-39); BUN/Creatinine Ratio 11 (6-26); Bilirubin,Total 0.5 mg/dL (0.3-1.0); Blood Urea Nitrogen 10 mg/dL (8-23); Calcium 9.8 mg/dL (8.6-10.3); Carbon Dioxide 23 mEq/L (23-29); Chloride 107 mEq/L (98-107); Globulin 2.4 g/dL (2.4-3.5); Glucose 198 mg/dL (70-105); Osmolality,Calculated 295 (280-300); Potassium 4.2 mEq/L (3.5-5.1); Sodium 140 mEq/L (136-145); Total Protein 6.7 g/dL (6.4-8.9); Troponin I < 0.03 ng/mL (< 0.04); eGFR For African Americans > 60 (> 60); eGFR For Non-African Americans > 60 (> 60)
[2020-03-16] MEDS ORDERED: Ondansetron 4 MG/2 ML VIAL IVP ONE (05:58)
[2020-03-16] MEDS ORDERED: Naloxone 0.4 MG/ML INJ IVP PRN (06:14)
[2020-03-16] MEDS ORDERED: Ondansetron 4 MG/2 ML VIAL IVP PRN (06:14)
[2020-03-16] MEDS ORDERED: Nitroglycerin 0.4 MG TAB.SUBL SL PRN (06:16)
[2020-03-16] MEDS ORDERED: Triamcinolone Acet 0.1% CRM 80 GM Tube TP PRN (06:19)
[2020-03-16] MEDS ORDERED: *HR* Dextrose 50 % in Water (Vial) 50 ML VIAL IVP PRN (06:21)
[2020-03-16] MEDS ORDERED: Dextrose Gel 15 GM/37.5 ML TUBE PO PRN ×2 (06:21)
[2020-03-16] MEDS ORDERED: D5% in Water 1,000 ML IVC PRN (06:21)
[2020-03-16] MEDS ORDERED: Fluticasone Propionate Nasal 50 MCG/SPRAY BOTTLE NS SCH (09:00)
[2020-03-16] MEDS ORDERED: Metoprolol XL (24 HR) Succ 50 MG TAB.ER.24H PO SCH (09:00)
[2020-03-16] MEDS ORDERED: lisinopriL 20 MG TABLET PO SCH (09:00)
[2020-03-16] MEDS ORDERED: amLODIPine 5 MG TABLET PO SCH (09:00)
[2020-03-16] MEDS ORDERED: Aspirin 81 MG TAB.CHEW PO SCH (09:00)
[2020-03-16] MEDS ORDERED: Ascorbic Acid 500 MG TABLET PO SCH (09:00)
[2020-03-16 10:44] VITALS: BP 132/78
[2020-03-16] MEDS ORDERED: Regadenoson 0.4 MG/5 ML SYRINGE IVP ONE (10:52)
[2020-03-16] MEDS ORDERED: Insulin LISPRO 300 UNITS/3 ML VIAL SQ SCH (12:00)
[2020-03-16] MEDS ORDERED: *HR* Heparin 5,000 UNIT/ML VIAL SQ SCH (14:00)
[2020-03-23] MEDS ORDERED: (Adalimumab [Humira] 40 MG) SQ SCH (06:30)
== END 2020-03-16 13:10 | disposition home or self-care (01) ==
LOC: CDU 04:48 → EMEROOARM 04:48 → CDU 06:55
PROVIDERS: ADMIT Student in an Organized Health Care Education/Training Program; ATTEND Student in an Organized Health Care Education/Training Program

== ENCOUNTER 2021-01-15 14:11 | Inpatient (IN) ==
[2021-01-15 15:27] LABS: Basophils % 0.4 %; Eosinophils % 0.4 %; Hematocrit 40.9 % (37.5-50.1); Hemoglobin 13.4 g/dL (12.9-16.9); Immature Granulocytes % 0.3 % (0-4); Lymphocytes # 1.9 K/mcL (0.6-4.6); Lymphocytes % 25.7 %; Mean Corpuscular HGB Conc 32.8 g/dL (31.6-35.5); Mean Corpuscular Hemoglobin 29.9 pg (28.0-33.3); Mean Corpuscular Volume 91.3 fL (83.0-100.0); Mean Platelet Volume 10.1 fL (9.4-12.4); Monocytes # 0.7 K/mcL (0.0-1.3); Monocytes % 9.1 %; Neutrophils # 4.8 K/mcL (1.6-8.9); Platelet Count 210 K/mcL (140-400); Red Blood Count 4.48 M/mcL (4.19-5.50); Red Cell Distribution Width 12.8 % (11.5-14.5); Segmented Neutrophils % 64.1 %; White Blood Count 7.4 K/mcL (4.3-11.1)
[2021-01-15 15:48] LABS: Alanine Aminotransferase 31 Units/L (7-52); Albumin 4.4 g/dL (3.5-5.7); Albumin/Globulin Ratio 1.8 (1.1-2.2); Alkaline Phosphatase 55 Units/L (34-104); Aspartate Amino Transferase 23 Units/L (13-39); BUN/Creatinine Ratio 12 (6-26); Bilirubin,Total 1.1 mg/dL (0.3-1.0); Blood Urea Nitrogen 12 mg/dL (8-23); Calcium 9.3 mg/dL (8.6-10.3); Carbon Dioxide 27 mEq/L (23-29); Chloride 105 mEq/L (98-107); Globulin 2.5 g/dL (2.4-3.5); Glucose 183 mg/dL (70-105); Osmolality,Calculated 294 (280-300); Sodium 140 mEq/L (136-145); Total Protein 6.9 g/dL (6.4-8.9); eGFR For African Americans > 60 (> 60); eGFR For Non-African Americans > 60 (> 60)
[2021-01-15 17:01] LABS: Troponin I < 0.03 ng/mL (< 0.04)
[2021-01-15] MEDS ORDERED: Ondansetron ODT 4 MG TAB.RAPDIS SL PRN (17:12)
[2021-01-15] MEDS ORDERED: Mag Hydrox/Al Hydrox/Simeth 30 ML UDC PO PRN (17:12)
[2021-01-15] MEDS ORDERED: MOM Conc 10 ML UD.LIQ PO PRN (17:12)
[2021-01-15] MEDS ORDERED: Melatonin 3 MG TABLET PO PRN (17:12)
[2021-01-15] MEDS ORDERED: Naloxone 0.4 MG/ML INJ IVP PRN (17:12)
[2021-01-15] MEDS ORDERED: Perflutren Lipid Microsphere 1.3 ML in 0.9 % Sodium Chloride 8.7 ML IVP PRN (17:27)
[2021-01-15] MEDS ORDERED: *HR* Dextrose 50 % in Water (Vial) 50 ML VIAL IVP PRN (17:37)
[2021-01-15] MEDS ORDERED: Dextrose Gel 15 GM/37.5 ML TUBE PO PRN ×2 (17:37)
[2021-01-15] MEDS ORDERED: D5% in Water 1,000 ML IVC PRN (17:37)
[2021-01-15] MEDS: Aspirin 81 MG TAB.CHEW PO SCH (17:53)
[2021-01-15] MEDS: Insulin LISPRO 300 UNITS/3 ML VIAL SUBQ SCH (20:37)
[2021-01-15 22:04] LABS: Estimated Average Glucose 186 mg/dl; Hemoglobin A1C 8.1 %
[2021-01-15] MEDS ORDERED: *HR* Heparin 5,000 UNIT/ML VIAL IVP ONE (22:37)
[2021-01-15] MEDS ORDERED: *HR* Heparin 5,000 UNIT/ML VIAL IVP PRN ×2 (22:37)
[2021-01-15] MEDS ORDERED: Heparin 25,000UNIT/250ML 1/2NS 25,000 UNIT/250 ML IV.SOLN IVC SCH (22:45)
[2021-01-15 23:25] LABS: INR 1.1; Prothrombin Time 12.3 Seconds (9.4-12.1)
[2021-01-15 23:31] LABS: Heparin anti-factor XA UFH < 0.04 IU/mL (0.30-0.70)
[2021-01-16 03:44] LABS: Hematocrit 38.3 % (37.5-50.1); Hemoglobin 12.9 g/dL (12.9-16.9); Mean Corpuscular HGB Conc 33.7 g/dL (31.6-35.5); Mean Corpuscular Hemoglobin 30.2 pg (28.0-33.3); Mean Corpuscular Volume 89.7 fL (83.0-100.0); Mean Platelet Volume 10.3 fL (9.4-12.4); Platelet Count 193 K/mcL (140-400); Red Blood Count 4.27 M/mcL (4.19-5.50); Red Cell Distribution Width 12.5 % (11.5-14.5); White Blood Count 5.5 K/mcL (4.3-11.1)
[2021-01-16 04:04] LABS: Alanine Aminotransferase 24 Units/L (7-52); Albumin 3.9 g/dL (3.5-5.7); Albumin/Globulin Ratio 1.8 (1.1-2.2); Alkaline Phosphatase 46 Units/L (34-104); Aspartate Amino Transferase 19 Units/L (13-39); BUN/Creatinine Ratio 9 (6-26); Bilirubin,Total 1.3 mg/dL (0.3-1.0); Blood Urea Nitrogen 9 mg/dL (8-23); Calcium 9.1 mg/dL (8.6-10.3); Carbon Dioxide 26 mEq/L (23-29); Chloride 106 mEq/L (98-107); Chol/HDL Ratio 4.5 (0-4.9); Cholesterol 166 mg/dL (< 200); Globulin 2.2 g/dL (2.4-3.5); Glucose 122 mg/dL (70-105); HDL Cholesterol 37 mg/dL (40-59); LDL Cholesterol,Calculated 107 mg/dL (< 100); Osmolality,Calculated 290 (280-300); Potassium 3.8 mEq/L (3.5-5.1); Sodium 140 mEq/L (136-145); Total Protein 6.1 g/dL (6.4-8.9); Triglycerides 111 mg/dL (< 150); eGFR For African Americans > 60 (> 60); eGFR For Non-African Americans > 60 (> 60)
[2021-01-16] MEDS: Insulin LISPRO 300 UNITS/3 ML VIAL SUBQ SCH ×4 (07:42→19:53)
[2021-01-16] MEDS: Aspirin 81 MG TAB.CHEW PO SCH (07:45)
[2021-01-16] MEDS: Metoprolol XL (24 HR) Succ 50 MG TAB.ER.24H PO SCH (11:43)
[2021-01-16] MEDS ORDERED: *HR* Heparin 10,000 UNIT/10 ML VIAL ONE (11:45)
[2021-01-16] MEDS ORDERED: ISOVUE-370 200 ML INFUS..BTL ONE ×2 (11:45→13:47)
[2021-01-16] MEDS ORDERED: Nitroglycerin 1,000 MCG/5 ML VIAL IV ONE (11:45)
[2021-01-16] MEDS ORDERED: Heparin 1,000 UNITS/500 mL 500 ML ONE (11:45)
[2021-01-16] MEDS ORDERED: 0.9 % Sodium Chloride 1,000 ML ONE ×2 (11:45)
[2021-01-16] MEDS ORDERED: *HR* FentaNYL (PF) 100 MCG/2 ML VIAL ONE (13:20)
[2021-01-16] MEDS ORDERED: Ondansetron 4 MG/2 ML VIAL ONE ×2 (13:29→15:41)
[2021-01-16] MEDS ORDERED: Tirofiban 12.5 MG/250ML 12.5 MG/250 ML BAG ONE (13:39)
[2021-01-16] MEDS ORDERED: *HR* Promethazine 25 MG/ML VIAL ONE (13:59)
[2021-01-16] MEDS ORDERED: Tirofiban 12.5 MG/250ML 12.5 MG/250 ML BAG IVC SCH (14:00)
[2021-01-16] MEDS ORDERED: methylPREDNISolone 125 MG/2 ML VIAL ONE (15:40)
[2021-01-16 17:28] LABS: Hematocrit 40.4 % (37.5-50.1)
[2021-01-16 23:09] LABS: Hematocrit 41.6 % (37.5-50.1); Hemoglobin 13.8 g/dL (12.9-16.9)
[2021-01-17] MEDS ORDERED: Famotidine 20 MG/2 ML VIAL IVP ONE (03:55)
[2021-01-17 06:13] LABS: Hematocrit 42.4 % (37.5-50.1); Mean Corpuscular Hemoglobin 30.2 pg (28.0-33.3); Mean Corpuscular Volume 91.4 fL (83.0-100.0); Mean Platelet Volume 10.5 fL (9.4-12.4); Platelet Count 251 K/mcL (140-400); Red Blood Count 4.64 M/mcL (4.19-5.50)
[2021-01-17 06:14] LABS: White Blood Count 13.2 K/mcL (4.3-11.1)
[2021-01-17 07:36] LABS: Alanine Aminotransferase 27 Units/L (7-52); Albumin 4.1 g/dL (3.5-5.7); Albumin/Globulin Ratio 1.6 (1.1-2.2); Alkaline Phosphatase 48 Units/L (34-104); Aspartate Amino Transferase 21 Units/L (13-39); BUN/Creatinine Ratio 15 (6-26); Bilirubin,Total 1.3 mg/dL (0.3-1.0); Blood Urea Nitrogen 16 mg/dL (8-23); Calcium 9.2 mg/dL (8.6-10.3); Carbon Dioxide 20 mEq/L (23-29); Chloride 103 mEq/L (98-107); Globulin 2.5 g/dL (2.4-3.5); Glucose 198 mg/dL (70-105); Osmolality,Calculated 293 (280-300); Potassium 4.2 mEq/L (3.5-5.1); Sodium 138 mEq/L (136-145); Total Protein 6.6 g/dL (6.4-8.9); eGFR For African Americans > 60 (> 60); eGFR For Non-African Americans > 60 (> 60)
[2021-01-17] MEDS: Insulin LISPRO 300 UNITS/3 ML VIAL SUBQ SCH ×2 (08:53→12:26)
[2021-01-17] MEDS ORDERED: Isosorbide MONOnitrate (24 HR) 30 MG TAB.ER.24H PO SCH (09:00)
[2021-01-17] MEDS ORDERED: amLODIPine 5 MG TABLET PO SCH (09:00)
[2021-01-17] MEDS ORDERED: lisinopriL 20 MG TABLET PO SCH (09:30)
[2021-01-17 10:38] VITALS: BP 138/82
[2021-01-17] MEDS: Metoprolol XL (24 HR) Succ 50 MG TAB.ER.24H PO SCH (13:05)
[2021-01-17] MEDS: Aspirin 81 MG TAB.CHEW PO SCH (13:05)
== END 2021-01-17 18:14 | disposition home or self-care (01) | DRG 247 ==
LOC: 3BNU 14:11 → EMEROOARM 14:11 → SUATTDRO 16:44 → 3BNU 17:37
PROVIDERS: ADMIT Internal Medicine; ATTEND Nurse Practitioner